=== PATIENT | male | born 1965 | race Caucasian/White ===

== ENCOUNTER 2021-01-11 17:27 | Emergency (ER) | payer MEDICAID, SELFPAY ==
[2021-01-11 17:36] VITALS: BP 146/95; PULSE 93; RESP 16; TEMP 36.9; O2SAT 96; BMI 26.1
[2021-01-11 17:41] VITALS: BP 146/95; PULSE 86; RESP 16; O2SAT 94
[2021-01-11 17:47] VITALS: BP 146/95; PULSE 84; RESP 16; O2SAT 98
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
[2021-01-11] MEDS: acetaminophen 325 mg Tablet 650 MG PO (19:02)
--- NOTE | 2021-01-12 10:59 | DCPLANNER ---
schedule planning manager had message to schedule a follow up appointment for patient with ortho. schedule planning manager called the ortho clinic, spoke with Maryjo, gave clinic patients information. schedule planning manager was told that patients information would be printed and reviewed. Clinic will call patient with appointment information.
--- NOTE | 2021-01-13 07:48 | DCPLANNER ---
Patient has a follow up appointment scheduled for Friday, January 15, 2021 at 10:[address] Reese at ortho. Clinic will call patient with appointment information.
--- NOTE | 2021-01-21 14:08 | DCPLANNER ---
Patient had a follow up appointment scheduled for 01.15.[address] Reese at [facility] - patient did attend appointment.
== END 2021-01-11 19:21 | disposition home or self-care (01) ==
LOC: ER 17:40
PROVIDERS: Emergency Provider Family Medicine
DX: S82.401A Unspecified fracture of shaft of right fibula, initial encounter for closed fracture (principal); X50.1XXA Overexertion from prolonged static or awkward postures, initial encounter; F17.210 Nicotine dependence, cigarettes, uncomplicated
CPT/HCPCS: 73600; 99283

== ENCOUNTER → 2021-01-15 10:21 | Outpatient (BNVA) | payer MEDICARE, MEDICAID, SELFPAY | PROVIDERS: Referring Provider Family Medicine; Visit Provider Orthopaedic Surgery | DX: S82.409A Unspecified fracture of shaft of unspecified fibula, initial encounter for closed fracture (principal); X58.XXXA Exposure to other specified factors, initial encounter | CPT/HCPCS: 73610 ==

== ENCOUNTER → 2021-01-28 10:15 | Outpatient (BNVA) | payer MEDICARE, MEDICAID, SELFPAY | PROVIDERS: Visit Provider Orthopaedic Surgery | DX: S82.409A Unspecified fracture of shaft of unspecified fibula, initial encounter for closed fracture (principal); X58.XXXA Exposure to other specified factors, initial encounter | CPT/HCPCS: 73610 ==

== ENCOUNTER → 2021-02-25 09:22 | Outpatient (BNVA) | payer MEDICARE, MEDICAID, SELFPAY | PROVIDERS: Visit Provider Orthopaedic Surgery | DX: S82.899A Other fracture of unspecified lower leg, initial encounter for closed fracture (principal); S82.831A Other fracture of upper and lower end of right fibula, initial encounter for closed fracture | CPT/HCPCS: 73610 ==

== ENCOUNTER → 2021-04-15 08:43 | Outpatient (BNVA) | payer MEDICARE, MEDICAID, SELFPAY | PROVIDERS: Visit Provider Orthopaedic Surgery | DX: S82.409A Unspecified fracture of shaft of unspecified fibula, initial encounter for closed fracture (principal); S82.899A Other fracture of unspecified lower leg, initial encounter for closed fracture; X58.XXXA Exposure to other specified factors, initial encounter | CPT/HCPCS: 73610 ==

== ENCOUNTER 2021-05-05 03:30 | Emergency (ER) | payer MEDICARE, MEDICAID, SELFPAY ==
[2021-05-05 03:31] VITALS: BP 133/97; PULSE 88; RESP 18; TEMP 36.6; O2SAT 95; BMI 27.3
--- NOTE | 2021-05-05 03:32 | XRR_ITS ---
PROCEDURE INFORMATION: Exam: XR Right Ankle Exam date and time: 05/05/2021 3:32 AM Age: 56 years old Clinical indication: Injury or trauma; Fall; Blunt trauma; Ankle; Right TECHNIQUE: Imaging protocol: XR Right ankle. Views: 3 or more views. COMPARISON: No relevant prior studies available. FINDINGS: Bones/joints: Subacute transverse fracture of the distal fibula at the level of the ankle joint, with evidence of healing, manifested by bony bridging and periosteal reaction. Joint spaces are well maintained. No dislocation. Swelling of the adjacent soft tissues is present. Soft tissues: See Bones/joints finding. XR/XR ankle RT min 3V* [id number] IMPRESSION: Healing fracture of the right distal fibula.
--- NOTE | 2021-05-05 03:32 | XRR_ITS ---
PROCEDURE INFORMATION: Exam: XR Right Foot Exam date and time: 05/05/2021 3:32 AM Age: 56 years old Clinical indication: Injury or trauma; Fall; Blunt trauma; Foot; Right TECHNIQUE: Imaging protocol: XR Right foot. Views: 3 or more views. COMPARISON: CR XR ankle RT min 3V* [id number] 04/15/2021 8:50 AM FINDINGS: Bones/joints: No acute fracture or dislocation. Healing fracture of the distal fibula. Joint spaces are well maintained. A small bone island is noted in the great toe proximal phalanx. Soft tissues: There is mild swelling of the soft tissues around the ankle. XR/XR foot RT min 3V* [id number] IMPRESSION: 1. No acute injury. 2. Healing fracture of the distal fibula.
--- NOTE | 2021-05-05 03:38 | ED_ITS ---
HPI - Fall General: Chief Complaint: Fall Stated Complaint: FALL Time Seen by Provider: 05/05/21 03:32 Source: patient and EMS Mode of arrival: EMS Limitations: no limitations History of Present Illness: HPI Narrative: 56-year-old male who came by EMS after a fall 2 hours ago. He states that he twisted his right ankle and has right lateral ankle pain since then. He states he had difficulty walking. He states that he actually broke an ankle 3 months ago and just got out of the walking boot. He denies any other injuries. Denies any pain. Denies hitting his head. complaint: fall Associated symptoms-after fall: Denies abdominal pain, chest pain, headache(s) or neck pain Review of Systems Const: Denies: fever(s), chills, body aches or change in appetite Eyes: Denies: blurry vision or eye discomfort ENMT: Denies: throat pain or dental pain Card: Denies: chest pain Resp: Denies: dyspnea GI: Denies: abdominal pain, nausea, vomiting or diarrhea : Denies: dysuria Musc: Reports: extremity pain; Denies: neck pain or back pain Skin/Breast: Denies: rash Neuro: Denies: headache(s) Psych: Denies: depression Fabio/Lymph: Denies: easy bruising All/Imm: Denies: urticaria PFSH ED PFSH: Family History Mother Hyperlipidemia Social History Smoking and tobacco status: current every day smoker cigarettes Alcohol intake: never Lives independently: Yes Marital status: / service: Yes status: Retired Current occupational status: retired History of recent travel: No Current gender identity: Male Physical Exam Const: COMMON NORMALS: no acute distress, patient oriented x3 and healthy appearing HENMT: COMMON NORMALS: normocephalic and atraumatic HEAD & SCALP: normocephalic and atraumatic Eye: COMMON NORMALS: Equal, round and reactive pupils present and EOMs intact bilaterally PUPIL: Yes Equal, round and reactive pupils present Neck/C-Spine: COMMON NORMALS: full ROM and supple Chest: COMMONS NORMALS: normal inspection of the chest and normal palpation of entire chest wall Resp: COMMON NORMALS: normal respiratory effort, No retractions, No use of accessory muscles and clear to auscultation bilaterally AUSCULTATION: clear to auscultation bilaterally Cardio: COMMON NORMALS: regular rate, regular rhythm and No murmurs present (Cardio) RATE: regular rate RHYTHM: regular rhythm GI: COMMON NORMALS: Normal to inspection, nondistended, normoactive bowel sounds present, Soft to palpation, non-tender and no masses PALPATION: Yes Soft to palpation Extremity: COMMON NORMALS: normal to inspection and full ROM NARRATIVE EXTREMITY EXAM: Tenderness over right lateral ankle with no obvious deformity Neuro: COMMON NORMALS: patient oriented x3, moves all extremities and no focal motor deficits Psych: COMMON NORMALS: mental status grossly normal, Normal thought process present and cooperative THOUGHT PROCESS: Normal thought process present Skin: COMMON NORMALS: no rashes or lesions noted and no wounds GENERAL SKIN EXAM: no rashes or lesions noted Course Vital Signs: Vital signs: Vital Signs Temperature 97.9 F 05/05/21 03:31 Pulse Rate 88 05/05/21 03:31 Respiratory Rate 18 05/05/21 03:31 Blood Pressure 133/97 05/05/21 03:31 Pulse Oximetry 95 05/05/21 03:31 MDM - Fall MDM Narrative: Medical decision making narrative: Patient presents after a fall and has a distal fibula fracture. He is to be nonweightbearing and we will place him in a splint and have him use crutches. He is to follow-up with orthopedics and return if worsening. Imaging Data^: xr r ankle: Attestation: I personally reviewed and interpreted this imaging study as follows: My impression: distal fibula fx Discharge Plan Discharge Patient Disposition: Home Clinical Impression: Ankle fracture Qualifiers: Encounter type: initial encounter Fracture type: closed Laterality: right Qualified Code(s): S82.891A - Other fracture of right lower leg, initial encounter for closed fracture Condition: Stable Prescriptions: New hydrocodone-acetaminophen 5-325 mg tablet 1 tab PO Q6H PRN (Reason: pain) Qty: 14 RF: 0 No Action hydrocodone-acetaminophen 5-325 mg tablet 1 tab PO Q6H PRN (Reason: pain) 7 Days Qty: 30 RF: 0 methocarbamol [Robaxin-750] 750 mg tablet 750 mg PO Q8H RF: 0 trazodone 150 mg tablet 300 mg PO BEDTIME@2200 RF: 0 buspirone 10 mg tablet 10 mg PO BID@0600,1800 RF: 0 mometasone [Nasonex] 50 mcg/actuation spray,non-aerosol 2 spray INTRANASAL DAILY@0600 RF: 0 metoprolol succinate 25 mg tablet extended release 24 hr 12.5 mg PO DAILY@0600 RF: 0 nicotine 14 mg/24 hr patch 24 hour 1 patch TRANSDERMA DAILY RF: 0 fluticasone propion-salmeterol [Advair Diskus] 250-50 mcg/dose blister with device 1 inh INHALATION BID@0800,1800 RF: 0 Spiriva Respimat 2.5 mcg/actuation mist 2 puff INHALATION DAILY@0600 RF: 0 pantoprazole 40 mg tablet,delayed release (DR/EC) 40 mg PO DAILY@0600 RF: 0 fluticasone propionate 50 mcg/actuation spray,suspension 2 spray INTRANASAL DAILY@0600 RF: 0 gabapentin 400 mg capsule 400 mg PO TID@06,12,18 RF: 0 Discharge Orders: Discharge ED (Routine); Ordered 05/05/21 Ordered By: Ton iL Referrals: Dena Alberts MD [Physician] - 1-3 days Discharge Diet: Advance as tolerated Discharge Activity: Resume usual activity Patient Instructions: Ankle Fracture (ED), Opioid Safety Coding Level of Care Code ED Digital Marketing Analyst for Alainag Fwd Exam Comprehensive
[2021-05-05] MEDS: HYDROcodone-acetaminophen 5-325 mg Tablet 1 TAB PO (03:41)
== END 2021-05-05 04:17 | disposition home or self-care (01) ==
PROVIDERS: Emergency Provider Emergency Medicine
DX: S82.831A Other fracture of upper and lower end of right fibula, initial encounter for closed fracture (principal); F17.210 Nicotine dependence, cigarettes, uncomplicated; X50.1XXA Overexertion from prolonged static or awkward postures, initial encounter
CPT/HCPCS: 29515; 73610; 73630; 99283; E0114

== ENCOUNTER → 2021-05-13 08:15 | Outpatient (BNVA) | payer MEDICARE, MEDICAID, SELFPAY | PROVIDERS: PCP Family Medicine; Visit Provider Podiatrist Foot & Ankle Surgery | DX: S82.891A Other fracture of right lower leg, initial encounter for closed fracture (principal); X58.XXXA Exposure to other specified factors, initial encounter | CPT/HCPCS: 73610 ==

== ENCOUNTER → 2021-05-25 08:01 | Outpatient (BNVA) | payer MEDICARE, MEDICAID, SELFPAY | PROVIDERS: PCP Family Medicine; Visit Provider Podiatrist Foot & Ankle Surgery | DX: S82.891A Other fracture of right lower leg, initial encounter for closed fracture (principal); S82.831A Other fracture of upper and lower end of right fibula, initial encounter for closed fracture; X58.XXXA Exposure to other specified factors, initial encounter; Z46.89 Encounter for fitting and adjustment of other specified devices; M25.371 Other instability, right ankle; S82.891D Other fracture of right lower leg, subsequent encounter for closed fracture with routine healing; S82.831D Other fracture of upper and lower end of right fibula, subsequent encounter for closed fracture with routine healing; X58.XXXD Exposure to other specified factors, subsequent encounter | CPT/HCPCS: 73610; 97760; L1902 ==

== ENCOUNTER 2021-05-25 09:04 | Outpatient (CLI) | payer MEDICARE, MEDICAID, SELFPAY | END 2021-05-25 09:05 | disposition home or self-care (01) | LOC: SPT 09:05 | PROVIDERS: Family Provider Podiatrist Foot & Ankle Surgery; PCP Family Medicine; Visit Provider Podiatrist Foot & Ankle Surgery | DX: Z46.89 Encounter for fitting and adjustment of other specified devices (principal); M25.371 Other instability, right ankle; S82.891D Other fracture of right lower leg, subsequent encounter for closed fracture with routine healing; S82.831D Other fracture of upper and lower end of right fibula, subsequent encounter for closed fracture with routine healing; X58.XXXD Exposure to other specified factors, subsequent encounter | CPT/HCPCS: 97760; L1902 ==

== ENCOUNTER 2021-06-02 10:57 | Outpatient (RCR) | payer MEDICARE, MEDICAID, SELFPAY | END 2021-06-05 23:59 | disposition home or self-care (01) | LOC: SPT 10:57 | PROVIDERS: Absent Provider Podiatrist Foot & Ankle Surgery; Family Provider Podiatrist Foot & Ankle Surgery; PCP Family Medicine; Referring Provider Podiatrist Foot & Ankle Surgery; Visit Provider Podiatrist Foot & Ankle Surgery | DX: M25.373 Other instability, unspecified ankle (principal); S82.891D Other fracture of right lower leg, subsequent encounter for closed fracture with routine healing; S82.831D Other fracture of upper and lower end of right fibula, subsequent encounter for closed fracture with routine healing; X58.XXXD Exposure to other specified factors, subsequent encounter | CPT/HCPCS: 97110; 97161 ==

== ENCOUNTER → 2021-06-21 13:47 | Outpatient (BNVA) | payer MEDICARE, MEDICAID, SELFPAY | PROVIDERS: Family Provider Podiatrist Foot & Ankle Surgery; PCP Family Medicine; Visit Provider Podiatrist Foot & Ankle Surgery | DX: S82.831D Other fracture of upper and lower end of right fibula, subsequent encounter for closed fracture with routine healing (principal); X58.XXXD Exposure to other specified factors, subsequent encounter | CPT/HCPCS: 73610 ==

== ENCOUNTER 2022-05-07 15:05 | Observation (INO) | payer MEDICARE, MEDICAID, SELFPAY ==
[2022-05-07] VITALS (9 sets, daily range): BP systolic 115–160; BP diastolic 64–95; PULSE 53–83; RESP 17–21; TEMP 36.3; O2SAT 94–100; BMI 27.3
--- NOTE | 2022-05-07 15:15 | ECG_ITS ---
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 Measurements Intervals [place] Rate: 78 P: 62 DC: 135 QRS: -3 QRSD: 101 T: 58 QT: 408 QTc: 468 Interpretive Statements SINUS RHYTHM SEPTAL MYOCARDIAL INFARCTION , PROBABLY OLD [40+ ms Q WAVE IN V1/V2] Compared to ECG 08/12/2016 00:47:02 Myocardial infarct finding now present Poor R-wave progression no longer present Electronically Signed On 05-08-2022 8:36:40 CDT by Narciso Mosley M.D. [id number]
--- NOTE | 2022-05-07 15:15 | XRR_ITS ---
PROCEDURE INFORMATION: Exam: XR Chest Exam date and time: 05/07/2022 3:22 PM Age: 57 years old Clinical indication: Angina; Additional info: Cp TECHNIQUE: Imaging protocol: Radiologic exam of the chest. Views: 1 view. COMPARISON: CT chest w con* [id number] 11/22/2018 8:39 AM FINDINGS: Lungs: Faint opacity in the inferolateral left upper lobe may be secondary to confluence of shadows or ground-glass lung opacities. The lungs are otherwise clear. Pleural spaces: Unremarkable. No pleural effusion. No pneumothorax. Heart/Mediastinum: Unremarkable. No cardiomegaly. Bones/joints: Unremarkable. XR/XR chest 1V portable [id number] IMPRESSION: Possible left upper lobe ground-glass opacity versus artifact.
--- NOTE | 2022-05-07 15:16 | ED_ITS ---
HPI - Chest Pain General: Chief Complaint: Chest Pain Stated Complaint: CHEST PAIN Time Seen by Provider: 05/07/22 15:08 History of Present Illness: 57-year-old presents with chest pain. States this started approximately an hour ago. Describes it as achy and radiating down the left arm. States that he had an unremarkable stress test 2 years ago but does not have any stents. Denies lower extremity pain or swelling. States pain resolved with nitro by EMS. He also received full-strength aspirin. Denies any nausea vomiting fever cough or chills. States pain is not exertional or pleuritic. Review of Systems Narrative: - CONSTITUTIONAL: Denies weight loss, fever and chills. - HEENT: Denies changes in vision and hearing. - RESPIRATORY: Denies SOB and cough. - CV: As above - GI: Denies abdominal pain, nausea, vomiting and diarrhea. - : Denies dysuria and urinary frequency. - MSK: Denies myalgia and joint pain. - SKIN: Denies rash and pruritus. - NEUROLOGICAL: Denies headache, weakness, numbness and syncope. - PSYCHIATRIC: Denies suicidal ideation PFSH ED PFSH: Family History Mother Hyperlipidemia Social History Smoking and tobacco status: never smoked Alcohol intake: never Lives independently: Yes Marital status: / service: Yes status: Retired Current occupational status: retired History of recent travel: No Current gender identity: Male Physical Exam Narrative: EXAM NARRATIVE: - GENERAL: Alert and oriented x 3. No acute distress. Well-nourished. - EYES: EOMI. Anicteric. - HENT: Atraumatic, no C-spine tenderness. Moist mucous membranes. No scleral icterus. No cervical lymphadenopathy. - LUNGS: Clear to auscultation bilaterally. No accessory muscle use. Equal lung sounds bilaterally. No respiratory distress. - CARDIOVASCULAR: Regular rate and rhythm. No murmur. No JVD. - ABDOMEN: Soft, non-tender and non-distended. Negative CVA tenderness bilaterally, no rebound or guarding, negative Williamson sign. No palpable masses. - EXTREMITIES: No edema. Non-tender. - SKIN: No rashes or lesions. Warm. - NEUROLOGIC: No meningismus or focal neurological deficits. CN II-XII grossly intact. - PSYCHIATRIC: Cooperative. Appropriate mood and affect. Course Vital Signs: Vital signs: Vital Signs Pulse Rate 72 05/07/22 16:45 Respiratory Rate 18 05/07/22 16:45 Blood Pressure 116/64 05/07/22 16:45 Pulse Oximetry 95 05/07/22 16:45 MDM - Chest Pain Medical Decision Making 57-year-old presents with chest pain. States it radiates down the left arm. This resolved after nitro by EMS. He already received full-strength aspirin. Initial EKG and troponin do not reveal any sign of acute ischemia or other acute abnormality. D-dimer is elevated. CTA of the chest is currently pending. Remainder of lab work and imaging reviewed. Discussed with hospitalist and they agreed patient would benefit from admission. Patient admitted in stable condition. Further evaluation management per hospitalist team. Lab Data : 05/07/22 15:15 05/07/22 15:15 Radiology Impressions Chest X-Ray 05/07/22 15:15 IMPRESSION: Possible left upper lobe ground-glass opacity versus artifact. Laboratory Results WBC 8.3 10^3/uL (4.0-10.0) 05/07/22 15:15 RBC 4.46 10^6/uL (4.1-5.3) 05/07/22 15:15 Hgb 14.6 g/dL (11.7-16.6) 05/07/22 15:15 Hct 42.4 % (42.0-52.0) 05/07/22 15:15 MCV 95.1 fl (80-94) H 05/07/22 15:15 MCH 32.7 pg (28.0-34.0) 05/07/22 15:15 MCHC 34.4 g/dL (30.0-36.0) 05/07/22 15:15 RDW 12.6 % (12.1-15.1) 05/07/22 15:15 Plt Count 210 10^3/cmm (130-400) 05/07/22 15:15 MPV 9.5 fL (7.4-10.4) 05/07/22 15:15 Neut % (Auto) 61.3 % 05/07/22 15:15 Lymph % (Auto) 30.7 % 05/07/22 15:15 Edmunds % (Auto) 5.7 % 05/07/22 15:15 Eos % (Auto) 0.8 % 05/07/22 15:15 Baso % (Auto) 1.0 % 05/07/22 15:15 Neut # (Auto) 5.08 10^3/uL (1.8-7.7) 05/07/22 15:15 Lymph # (Auto) 2.5 10^3/uL (0.8-4.8) 05/07/22 15:15 Edmunds # (Auto) 0.5 10^3/uL (0.2-0.9) 05/07/22 15:15 Eos # (Auto) 0.1 10^3/uL (0.0-0.8) 05/07/22 15:15 Baso # (Auto) 0.1 10^3/uL (0.0-0.1) 05/07/22 15:15 Nucleated RBC % (auto) 0 % 05/07/22 15:15 Nucleated RBCs # 0.0 /100WBC 05/07/22 15:15 D-Dimer 0.94 ug/mIFEU (0-0.59) H 05/07/22 15:15 Sodium 141 mmol/L (136-145) 05/07/22 15:15 Potassium 3.5 mmol/L (3.5-5.1) 05/07/22 15:15 Chloride 108 mmol/L (98-107) H 05/07/22 15:15 Carbon Dioxide 18 mmol/L (22-29) L 05/07/22 15:15 Anion Gap 18.5 (5-19) 05/07/22 15:15 BUN 10 mg/dL (6-20) 05/07/22 15:15 Creatinine 0.6 mg/dL (0.7-1.2) L 05/07/22 15:15 GFR Calculation 139.4 mL/min (90-130) H 05/07/22 15:15 Glucose 74 mg/dL (65-115) 05/07/22 15:15 Calculated Osmolality 290 mOsm/kg (285-295) 05/07/22 15:15 Calcium 8.1 mg/dL (8.5-10.5) L 05/07/22 15:15 Total Bilirubin 0.4 mg/dL (0.15-1.2) 05/07/22 15:15 AST 31 U/L (0-40) 05/07/22 15:15 ALT 15 U/L (0-41) 05/07/22 15:15 Alkaline Phosphatase 78 IU/L (40-130) 05/07/22 15:15 Troponin T Baseline 8 ng/L (0-15) 05/07/22 15:15 Total Protein 6.6 g/dL (6.6-8.7) 05/07/22 15:15 Albumin 3.9 g/dL (3.5-5.2) 05/07/22 15:15 Globulin 2.7 g/dL (1.3-4.6) 05/07/22 15:15 Lipase 33 U/L (13-60) 05/07/22 15:15 EKG Data EKG 1: Other EKG comments: Sinus rhythm, rate of 78, no sign of acute ischemia or other acute abnormality. Discharge Plan Discharge Condition: Stable Prescriptions: No Action (DME) ASO to the Right See Rx Instructions .ROUTE .MEDSUPPLY Qty: 1 0RF Rx Instructions: As directed metoprolol succinate 25 mg tablet extended release 24 hr 25 mg PO DAILY@0600 0RF fluticasone propion-salmeterol [Advair Diskus] 250-50 mcg/dose blister with device 1 inh INHALATION BID@0800,1800 0RF Spiriva Respimat 2.5 mcg/actuation mist 2 puff INHALATION DAILY@0600 0RF pantoprazole 40 mg tablet,delayed release (DR/EC) 40 mg PO DAILY@0600 0RF fluticasone propionate 50 mcg/actuation spray,suspension 2 spray INTRANASAL DAILY@0600 0RF gabapentin 400 mg capsule 400 mg PO TID@06,12,18 0RF lisinopril 10 mg tablet 10 mg PO DAILY 0RF Symbicort 160-4.5 mcg/actuation HFA aerosol inhaler 2 puff INHALATION BID 0RF Daliresp 500 mcg Tablet 500 mcg PO DAILY 0RF Referrals: Sheldon Banerjee DO [Primary Care Provider] - Coding Level of Care Code ED 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
[2022-05-07 15:43] LABS: Basophils # 0.1 10^3/uL (0.0-0.1); Eosinophils # 0.1 10^3/uL (0.0-0.8); Eosinophils % 0.8 %; Hematocrit 42.4 % (42.0-52.0); Hemoglobin 14.6 g/dL (11.7-16.6); Lymphocytes # 2.5 10^3/uL (0.8-4.8); Lymphocytes % 30.7 %; Mean Corpuscular HGB Conc 34.4 g/dL (30.0-36.0); Mean Corpuscular Hemoglobin 32.7 pg (28.0-34.0); Mean Corpuscular Volume 95.1 fl (80-94); Mean Platelet Volume 9.5 fL (7.4-10.4); Monocytes # 0.5 10^3/uL (0.2-0.9); Monocytes % 5.7 %; Neutrophils # 5.08 10^3/uL (1.8-7.7); Neutrophils % 61.3 %; Nucleated Red Blood Cells % 0 %; Platelet Count 210 10^3/cmm (130-400); Red Blood Count 4.46 10^6/uL (4.1-5.3); Red Cell Distribution Width 12.6 % (12.1-15.1); White Blood Count 8.3 10^3/uL (4.0-10.0)
[2022-05-07 15:49] LABS: D Dimer 0.94 ug/mIFEU (0-0.59)
[2022-05-07 16:01] LABS: Alanine Aminotransferase 15 U/L (0-41); Albumin Level 3.9 g/dL (3.5-5.2); Alkaline Phosphatase 78 IU/L (40-130); Anion Gap 18.5 (5-19); Aspartate Amino Transferase 31 U/L (0-40); Blood Urea Nitrogen 10 mg/dL (6-20); Calcium 8.1 mg/dL (8.5-10.5); Carbon Dioxide 18 mmol/L (22-29); Chloride 108 mmol/L (98-107); Globulin 2.7 g/dL (1.3-4.6); Glomerular Filtration Rate 139.4 mL/min (90-130); Glucose 74 mg/dL (65-115); Lipase 33 U/L (13-60); Osmolality Calculated 290 mOsm/kg (285-295); Potassium 3.5 mmol/L (3.5-5.1); Sodium 141 mmol/L (136-145); Total Bilirubin 0.4 mg/dL (0.15-1.2); Total Protein 6.6 g/dL (6.6-8.7)
[2022-05-07 16:03] LABS: Troponin(5th) Baseline 8 ng/L (0-15)
--- NOTE | 2022-05-07 16:08 | CTR_ITS ---
PROCEDURE INFORMATION: Exam: CTA Chest With Contrast Exam date and time: 05/07/2022 5:58 PM Age: 57 years old Clinical indication: Other: Chest pain radiates to left side of neck; Additional info: Pe TECHNIQUE: Imaging protocol: Computed tomographic angiography of the chest with contrast. 3D rendering (Not supervised by radiologist): MIP and/or 3D reconstructed images were created by the technologist. Radiation optimization: All CT scans at this facility use at least one of these dose optimization techniques: automated exposure control; mA and/or kV adjustment per patient size (includes targeted exams where dose is matched to clinical indication); or iterative reconstruction. Contrast material: OMNI 350; Contrast volume: 84 ml; Contrast route: INTRAVENOUS (IV); COMPARISON: CT chest w con* [id number] 11/22/2018 8:39 AM RADIATION DOSE METRICS: Total DLP (mGy-cm): 579.19 FINDINGS: Pulmonary arteries: The pulmonary arteries are adequately opacified for evaluation to the subsegmental level. There is no filling defect to suggest embolism. Aorta: The ascending aorta is ectatic measuring up to 4 cm diameter. There is mild aortic atherosclerotic disease. Lungs: There is moderate upper lung predominant centrilobular emphysema. There is no consolidation. Pleural spaces: There is no pleural effusion or pneumothorax. Heart: Heart size is normal. There is no pericardial effusion. Lymph nodes: There is no mediastinal or hilar lymphadenopathy. Intraperitoneal space: Visible structures in the upper abdomen are unremarkable. Bones/joints: Bones are unremarkable. Soft tissues: The extrathoracic soft tissues are unremarkable. CT/CT angio chest PE protcl [id number] IMPRESSION: 1. No pulmonary embolism. 2. Moderate centrilobular emphysema. no consolidation. 3. Incidental findings above.
--- NOTE | 2022-05-07 17:15 | ECG_ITS ---
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 Measurements Intervals [place] Rate: 51 P: 19 AR: 120 QRS: 1 QRSD: 99 T: 30 QT: 470 QTc: 433 Interpretive Statements SINUS BRADYCARDIA SEPTAL MYOCARDIAL INFARCTION , PROBABLY OLD [40+ ms Q WAVE IN V1/V2] Compared to ECG 05/07/2022 15:19:46 Sinus rhythm no longer present Myocardial infarct finding still present Electronically Signed On 05-08-2022 8:38:37 CDT by Narciso Mosley M.D. [id number]
[2022-05-07 17:47] LABS: Troponin 5 2HR 8.37 ng/L (0-15)
[2022-05-07 17:51] LABS: Troponin 5 2HR Delta 0.37 ABS# (0-10)
[2022-05-07] MEDS: iohexol 350 mg/mL 100 mL Btl IV (17:57)
--- NOTE | 2022-05-07 17:58 | USCV_ITS ---
Lucian Banuelos Age: 57 Gender: M : 1965 Exam Date: 05/07/2022 23:36 Ordering Phys: London Sepulveda MD Technologist: Derek Huffman Exam Location: [facility] [place] Indication: chest pain tightness / shortness of breath BP: 138 / 85 HR: 53 Rhythm: Sinus Technical Quality: Adequate MEASUREMENTS (Male / Female) Normal Values 2D ECHO LV Diastolic Diameter PLAX 4.5 cm 4.2 - 5.9 / 3.9 - 5.3 cm LV Systolic Diameter PLAX 2.8 cm IVS Diastolic Thickness 1.1 cm 0.6 - 1.0 / 0.6 - 0.9 cm IVS Systolic Thickness 1.7 cm LVPW Diastolic Thickness 1.1 cm 0.6 - 1.0 / 0.6 - 0.9 cm LVPW Systolic Thickness 1.9 cm LVOT Diameter 2.0 cm LV Ejection Fraction 2D Teich 63.5 % LV Ejection Fraction MOD 2C 62.1 % LV Ejection Fraction 2C AL 62.4 % LA Diameter 3.4 cm LA Width 3.6 cm LA Height 3.3 cm RA Width 3.2 cm RA Height 3.8 cm Aorta at Sinotubular Diameter 1.7 cm IVC Diameter 1.0 cm M-MODE Aortic Annulus Diameter 2.4 cm LA Ao Ratio MM 1.5 MV E Point Septal Separation 1.2 cm DOPPLER AV Peak Velocity 99.3 cm/s LVOT Peak Velocity 53.0 cm/s AV Area Cont Eq vti 2.1 cm squared AV Area Cont Eq pk 1.6 cm squared MV Area PHT 5.0 cm squared Mitral E to A Ratio 1.8 MV E' Velocity 49.5 cm/s Mitral E to MV E' Ratio 5.5 Mitral E to LV E' Lateral Ratio 4.3 Mitral E to LV E' Septal Ratio 7.9 Right Atrial Pressure 3.0 mmHg PV Peak Velocity 85.0 cm/s FINDINGS Left Ventricle Normal left ventricular size, systolic function and wall thickness, with no regional wall motion abnormalities. Normal left ventricular wall thickness. Normal diastolic filling pattern. Left ventricular ejection fraction is estimated at 65 %. Right Ventricle The right ventricle is normal in size and function. Right Atrium The right atrium is normal in size. Left Atrium The left atrium is normal in size. Mitral Valve Structurally normal mitral valve without significant stenosis or prolapse. There is no mitral regurgitation. Aortic Valve Structurally normal aortic valve without significant sclerosis or stenosis. There is no aortic regurgitation. Tricuspid Valve Structurally normal tricuspid valve without significant stenosis or regurgitation. Pulmonary artery systolic pressure is normal. Pulmonic Valve Structurally normal pulmonic valve without significant stenosis. There is no pulmonic regurgitation. Pericardium Normal pericardium without effusion. Aorta Normal ascending aorta dimension. IVC The inferior vena cava pulmonary and hepatic veins appear normal. CONCLUSIONS Normal transthoracic echocardiogram. Dr. Narciso Mosley MD (Electronically Signed) Final Date: 08 May 2022 08:35 S
--- NOTE | 2022-05-07 18:11 | PM.HP ---
Providers/Chief Complaint Primary Care Provider: Sheldon Banerjee DO Chief Complaint: CHEST PAIN History of Present Illness Lucian Banuelos is a 57 year old male with a past medical history of COPD, current smoker, hypertension, history of CVA, CAD, who presents to [facility] for chest pain. Patient tells me that today he was walking outside, when he suddenly had onset of left-sided chest pain rating to the left neck, with shortness of breath, rating to the left arm, with diaphoresis, no nausea, vomiting. He tells me that he has been having increased shortness of breath with exertion, and episodes of chest pain but this was more severe. He tells me he had a history of CAD many years ago but no stents were placed. Does have a history of COPD, is a smoker, has been more short of breath recently. Review of Systems Const: Denies: fever(s), chills, fatigue or malaise ENMT: Denies: nasal congestion GI: Denies: abdominal pain, nausea or vomiting : Denies: dysuria Neuro: Denies: headache(s), dizziness or vertigo Medications/Allergies Home Medications Medication Instructions Recorded Confirmed Last Taken Type fluticasone 250 mcg-salmeterol 50 1 inh INHALATION BID@0800,1800 11/20/19 05/07/22 05/07/22 History mcg/dose blistr powdr for inhalation (Advair Diskus) metoprolol succinate 25 mg 25 mg PO DAILY@0600 tab 11/20/19 05/07/22 05/07/22 History tablet,extended release 24 hr tiotropium bromide 2.5 2 puff INHALATION DAILY@0600 11/20/19 05/07/22 05/07/22 History mcg/actuation mist for inhalation (Spiriva Respimat) fluticasone propionate 50 2 spray INTRANASAL DAILY@0600 01/11/21 05/07/22 05/07/22 History mcg/actuation nasal spray,suspension gabapentin 400 mg capsule 400 mg PO TID@06,12,18 01/11/21 05/07/22 05/07/22 History pantoprazole 40 mg tablet,delayed 40 mg PO DAILY@0600 01/11/21 05/07/22 05/07/22 History release ASO to the Right #1 ea 05/25/21 05/07/22 Unknown Rx budesonide-formoterol HFA 160 2 puff INHALATION BID 05/07/22 05/07/22 05/07/22 History mcg-4.5 mcg/actuation aerosol inhaler (Symbicort) lisinopril 10 mg tablet 10 mg PO DAILY 05/07/22 05/07/22 05/07/22 History roflumilast 500 mcg tablet 500 mcg PO DAILY 05/07/22 05/07/22 05/07/22 History (Ramíreziresalex) Allergies Allergy/AdvReac Type Severity Reaction Status Date / Time No Known Allergies Allergy Verified 05/07/22 15:49 PFSH Acute PFSH: Medical History (Updated 05/07/22 @ 18:13 by London Sepulveda MD) COPD (chronic obstructive pulmonary disease) Depression Emphysema, unspecified Essential (primary) hypertension GERD (gastroesophageal reflux disease) Hypertension Tobacco abuse Family History Mother Hyperlipidemia Social History Smoking and tobacco status: never smoked Alcohol intake: never Lives independently: Yes Marital status: / service: Yes status: Retired Current occupational status: retired History of recent travel: No Current gender identity: Male Vitals/I&O/Wt Last Vital Signs Pulse 72 05/07/22 16:45 Resp 18 05/07/22 16:45 BP 116/64 05/07/22 16:45 Pulse Ox 95 05/07/22 16:45 Weight last 48 hrs Weight 81.647 kg Physical Exam Const: COMMON NORMALS: no acute distress and patient oriented x3 HENMT: COMMON NORMALS: normocephalic HEAD & SCALP: normocephalic Neck/C-Spine: COMMON NORMALS: no JVD Resp: COMMON NORMALS: normal respiratory effort, No retractions, No use of accessory muscles and clear to auscultation bilaterally AUSCULTATION: clear to auscultation bilaterally Cardio: COMMON NORMALS: no JVD, regular rate, regular rhythm, S1 normal heart sound present and S2 normal heart sound present RATE: regular rate RHYTHM: regular rhythm HEART SOUNDS: S1 normal heart sound present and S2 normal heart sound present GI: COMMON NORMALS: Normal to inspection, nondistended, normoactive bowel sounds present, Soft to palpation, non-tender, No hepatosplenomegaly present, no masses and no bruits PALPATION: Yes Soft to palpation and Yes No hepatosplenomegaly present Extremity: COMMON NORMALS: capillary refill normal, no clubbing, cyanosis or edema, no calf tenderness and no pedal edema Neuro: COMMON NORMALS: patient oriented x3, CN's II-XII intact bilaterally, moves all extremities and no focal motor deficits Psych: COMMON NORMALS: mental status grossly normal Data : 05/07/22 15:15 05/07/22 15:15 A&P Assessment and plan (1) Chest pain: Status: Acute Plan Chest pain -Serial EKGs, serial troponins, telemetry monitoring -Cardiac echo -Aspirin, nitro, beta-lisa, statin -Does have complaints of shortness of breath with exertion, is a smoker, will treat for COPD exacerbation, prednisone, duo nebs, one-time dose of Solu-Medrol, COVID PCR pending -CT angiogram pending -Full code -Lovenox for DVT prophylaxis Attestations Medical Necessity Statement*: Patient requires hospitalization for chest pain, outpatient with observation Coding Level of Care Code Acute Card Decorator for [facility] Fwd Diagnoses Chest pain R07.9
[2022-05-07 18:48] LABS: Adenovirus Not Detected (NOT DETECT); Chlamydia Pneumoniae Not Detected (NOT DETECT); Coronavirus 229E,HKU1,NL63,OC4 Not Detected (NOT DETECT); Human Metapneumovirus Not Detected (NOT DETECT); Human Rhinovirus/Enterovirus Not Detected (NOT DETECT); Influenza A Not Detected (NOT DETECT); Influenza A H1 Not Detected (NOT DETECT); Influenza A H1-2009 Not Detected (NOT DETECT); Influenza A H3 Not Detected (NOT DETECT); Influenza B Not Detected (NOT DETECT); Mycoplasma Pneumoniae Not Detected (NOT DETECT); Parainfluenza Virus Type 1 Not Detected (NOT DETECT); Parainfluenza Virus Type 2 Not Detected (NOT DETECT); Parainfluenza Virus Type 3 Not Detected (NOT DETECT); Parainfluenza Virus Type 4 Not Detected (NOT DETECT); Respiratory Syncytial Virus A Not Detected (NOT DETECT); Respiratory Syncytial Virus B Not Detected (NOT DETECT); SARS-COV-2 Not Detected (NOT DETECT)
[2022-05-07 19:22] LABS: Chol HDL Ratio 2.23 mg/dL (1.0-5.00); Cholesterol 154 mg/dL (0-200); HDL Cholesterol 69 mg/dL (60-100); LDL Cholesterol Calculated 72 mg/dL (50-129); LDL HDL Ratio 1.04 RATIO (0.00-3.22); Triglycerides 66 mg/dL (0-150)
[2022-05-07] MEDS: nicotine 21 mg Patch 1 PATCH TRANSDERMA (19:43)
[2022-05-07] MEDS: enoxaparin 40 mg/0.4 mL Syringe SUBCUT (19:44)
--- NOTE | 2022-05-07 21:15 | ECG_ITS ---
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 Measurements Intervals [place] Rate: 57 P: 17 [place]: 131 QRS: -12 QRSD: 93 T: 44 QT: 423 QTc: 414 Interpretive Statements SINUS BRADYCARDIA SEPTAL MYOCARDIAL INFARCTION , PROBABLY OLD [40+ ms Q WAVE IN V1/V2] Compared to ECG 05/07/2022 18:33:47 No significant changes Electronically Signed On 05-08-2022 8:39:09 CDT by Narciso Mosley M.D. [email or web address]
--- NOTE | 2022-05-07 21:44 | PC.NURSE ---
EKG done at 2141 and shown to ER doctor
[2022-05-07 22:13] LABS: Troponin 5 6HR 8.92 ng/L (0-15)
[2022-05-07 22:22] LABS: Troponin 5 6HR Delta 0.92 ng/L (0-12)
[2022-05-07] MEDS: nitroglycerin 0.4 mg sublingual Tablet SUBLINGUAL ×2 (22:22→22:32)
[2022-05-07] MEDS: atorvastatin 40 mg Tablet PO (22:24)
[2022-05-07] MEDS: gabapentin 400 mg Capsule PO (22:24)
[2022-05-07 22:50] LABS: Estmated Average Glucose 97
[2022-05-07] MEDS: morphine 4 mg/mL SDV 1 mL 2 MG IVP (22:52)
--- NOTE | 2022-05-07 23:57 | PC.NURSE ---
marisol charge nurse informed dr zamudio via voalte that pt was having chest pain shortly after arriving to the floor. nitro given x2, with moderate relief, one time order for morphine placed and given. pt states chest pain relieved, some mild tightness still present. no obvious changes noted on ekg, vss
[2022-05-08] VITALS (7 sets, daily range): BP systolic 152–174; BP diastolic 74–91; PULSE 62–83; RESP 16–17; TEMP 36.2–37.2; O2SAT 95–99
[2022-05-08 05:27] LABS: Basophils # 0.1 10^3/uL (0.0-0.1); Eosinophils % 0.2 %; Hematocrit 47.2 % (42.0-52.0); Hemoglobin 16.7 g/dL (11.7-16.6); Lymphocytes # 0.6 10^3/uL (0.8-4.8); Lymphocytes % 12.7 %; Mean Corpuscular HGB Conc 35.4 g/dL (30.0-36.0); Mean Corpuscular Hemoglobin 32.8 pg (28.0-34.0); Mean Corpuscular Volume 92.7 fl (80-94); Monocytes # 0.1 10^3/uL (0.2-0.9); Monocytes % 1.4 %; Neutrophils # 4.19 10^3/uL (1.8-7.7); Neutrophils % 84.1 %; Nucleated Red Blood Cells % 0 %; Platelet Count 202 10^3/cmm (130-400); Red Blood Count 5.09 10^6/uL (4.1-5.3); Red Cell Distribution Width 12.4 % (12.1-15.1)
[2022-05-08 05:51] LABS: Alanine Aminotransferase 14 U/L (0-41); Alkaline Phosphatase 83 IU/L (40-130); Anion Gap 15.3 (5-19); Aspartate Amino Transferase 33 U/L (0-40); Blood Urea Nitrogen 9 mg/dL (6-20); Calcium 8.9 mg/dL (8.5-10.5); Carbon Dioxide 24 mmol/L (22-29); Chloride 104 mmol/L (98-107); Glomerular Filtration Rate 139.4 mL/min (90-130); Glucose 106 mg/dL (65-115); Osmolality Calculated 287 mOsm/kg (285-295); Phosphorus 2.3 mg/dL (2.5-4.5); Potassium 4.3 mmol/L (3.5-5.1); Sodium 139 mmol/L (136-145); Total Bilirubin 0.7 mg/dL (0.15-1.2)
[2022-05-08] MEDS: gabapentin 400 mg Capsule PO (08:32)
[2022-05-08] MEDS: predniSONE 20 mg Tablet 40 MG PO (08:32)
[2022-05-08] MEDS: lisinopril 10 mg Tablet PO (08:32)
[2022-05-08] MEDS: aspirin 81 mg EC Tablet PO (08:32)
[2022-05-08] MEDS: metoprolol succinate ER (24 HR) 25 mg Tablet PO (08:32)
[2022-05-08] MEDS: ipratropium-albuterol 3 mL Neb INHALATION (08:51)
--- NOTE | 2022-05-08 11:29 | PC.NURSE ---
patient's pharmacy isn't open today or tomorrow for the 09 of May, this nurse asked patient what pharmacy he wanted his meds sent to so that he can pick them up today. Pt refused to have medications sent anywhere but [facility] in [place], [place]. Patient educated on the importance of starting his medications EDER to prevent further ilness, chest pain, etc. Patient verbalized understanding. Medications were sent to pharmacy of choice.
--- NOTE | 2022-05-08 11:29 | PM.DCS ---
Discharge Providers Date of Admission: 05/07/22 17:46 Date of Discharge: May 08, 2022 Attending Provider at Admission: London Sepulveda MD Attending Provider at Discharge: London Sepulveda MD Primary Care Provider: Sheldon Banerjee DO Diagnoses at Discharge Discharge Diagnosis (1) Chest pain: Status: Acute Reason for Visit Reason for Visit: CHEST PAIN Hospital Course Hospital Course Lucian Banuelos is a 57 year old male with a past medical history of COPD, current smoker, hypertension, history of CVA, CAD, who presents to [facility] for chest pain.? Patient was admitted to [facility] for chest pain, no significant troponin leak, EKG no acute ST-T wave changes, he did have Q waves in the anterior leads, CT angiogram of the chest did not show any radiographic evidence of pulmonary embolism, his echocardiogram EF 65%, no significant wall motion abnormalities, he remained chest pain-free during his hospitalization Given his smoking history, I have advised him to follow-up with cardiology this week for consideration of stress testing. Patient was advised if you have recurrent chest pain to come back to emergency room. I have discharged him on aspirin, statin, beta-lisa, Aldactone, nitro as needed for chest pain. Physical Exam Const: COMMON NORMALS: no acute distress and patient oriented x3 Resp: COMMON NORMALS: normal respiratory effort, No retractions, No use of accessory muscles and clear to auscultation bilaterally AUSCULTATION: clear to auscultation bilaterally Cardio: COMMON NORMALS: regular rate, regular rhythm, S1 normal heart sound present and S2 normal heart sound present RATE: regular rate RHYTHM: regular rhythm HEART SOUNDS: S1 normal heart sound present and S2 normal heart sound present GI: COMMON NORMALS: Normal to inspection, nondistended, normoactive bowel sounds present, Soft to palpation and non-tender PALPATION: Yes Soft to palpation Extremity: COMMON NORMALS: no pedal edema Neuro: COMMON NORMALS: patient oriented x3 Psych: COMMON NORMALS: mental status grossly normal Discharge Data Studies Completed and Pending Completed Studies During Hospitalization Category Date Time Status CTA chest [CT angio chest PE protcl [id number]] Urgent Cat Scan 05/07/22 16:08 Completed XR chest 1V portable [id number] Stat Exams 05/07/22 15:15 Completed CV. echo complete* [id number] Routine Ultrasound 05/07/22 17:58 Completed Pending at discharge Category Date Time Status Complete Blood Count w/Auto AM LABS Lab 05/09/22 04:00 Ordered Complete Blood Count w/Auto AM LABS Lab 05/10/22 04:00 Ordered Comprehensive Metabolic Panel AM LABS Lab 05/09/22 04:00 Ordered Comprehensive Metabolic Panel AM LABS Lab 05/10/22 04:00 Ordered Magnesium AM LABS Lab 05/09/22 04:00 Ordered Magnesium AM LABS Lab 05/10/22 04:00 Ordered Phosphorus AM LABS Lab 05/09/22 04:00 Ordered Phosphorus AM LABS Lab 05/10/22 04:00 Ordered Radiology Impressions Chest X-Ray 05/07/22 15:15 IMPRESSION: Possible left upper lobe ground-glass opacity versus artifact. Chest CTA 05/07/22 16:08 IMPRESSION: 1. No pulmonary embolism. 2. Moderate centrilobular emphysema. no consolidation. 3. Incidental findings above. Laboratory Results WBC 5.0 10^3/uL (4.0-10.0) 05/08/22 04:07 RBC 5.09 10^6/uL (4.1-5.3) 05/08/22 04:07 Hgb 16.7 g/dL (11.7-16.6) H 05/08/22 04:07 Hct 47.2 % (42.0-52.0) 05/08/22 04:07 MCV 92.7 fl (80-94) 05/08/22 04:07 MCH 32.8 pg (28.0-34.0) 05/08/22 04:07 MCHC 35.4 g/dL (30.0-36.0) 05/08/22 04:07 RDW 12.4 % (12.1-15.1) 05/08/22 04:07 Plt Count 202 10^3/cmm (130-400) 05/08/22 04:07 MPV 10.0 fL (7.4-10.4) 05/08/22 04:07 Neut % (Auto) 84.1 % 05/08/22 04:07 Lymph % (Auto) 12.7 % 05/08/22 04:07 [place] % (Auto) 1.4 % 05/08/22 04:07 Eos % (Auto) 0.2 % 05/08/22 04:07 Baso % (Auto) 1.0 % 05/08/22 04:07 Neut # (Auto) 4.19 10^3/uL (1.8-7.7) 05/08/22 04:07 Lymph # (Auto) 0.6 10^3/uL (0.8-4.8) L 05/08/22 04:07 [place] # (Auto) 0.1 10^3/uL (0.2-0.9) L 05/08/22 04:07 Eos # (Auto) 0.0 10^3/uL (0.0-0.8) 05/08/22 04:07 Baso # (Auto) 0.1 10^3/uL (0.0-0.1) 05/08/22 04:07 Nucleated RBC % (auto) 0 % 05/08/22 04:07 Nucleated RBCs # 0.0 /100WBC 05/08/22 04:07 D-Dimer 0.94 ug/mIFEU (0-0.59) H 05/07/22 15:15 Sodium 139 mmol/L (136-145) 05/08/22 04:07 Potassium 4.3 mmol/L (3.5-5.1) 05/08/22 04:07 Chloride 104 mmol/L (98-107) 05/08/22 04:07 Carbon Dioxide 24 mmol/L (22-29) 05/08/22 04:07 Anion Gap 15.3 (5-19) 05/08/22 04:07 BUN 9 mg/dL (6-20) 05/08/22 04:07 Creatinine 0.6 mg/dL (0.7-1.2) L 05/08/22 04:07 GFR Calculation 139.4 mL/min (90-130) H 05/08/22 04:07 Glucose 106 mg/dL (65-115) 05/08/22 04:07 Estimat Average Glucose 97 05/07/22 15:15 Hemoglobin A1c 5.0 % (4.0-6.0) 05/07/22 15:15 Calculated Osmolality 287 mOsm/kg (285-295) 05/08/22 04:07 Calcium 8.9 mg/dL (8.5-10.5) 05/08/22 04:07 Phosphorus 2.3 mg/dL (2.5-4.5) L 05/08/22 04:07 Magnesium 2.0 mg/dL (1.7-2.3) 05/08/22 04:07 Total Bilirubin 0.7 mg/dL (0.15-1.2) 05/08/22 04:07 AST 33 U/L (0-40) 05/08/22 04:07 ALT 14 U/L (0-41) 05/08/22 04:07 Alkaline Phosphatase 83 IU/L (40-130) 05/08/22 04:07 Troponin T Baseline 8 ng/L (0-15) 05/07/22 15:15 Troponin T 120 Minute 8.37 ng/L (0-15) 05/07/22 17:15 Delta Troponin T 0.37 ABS# (0-10) 05/07/22 17:15 Troponin T Hi Sens 6Hr 8.92 ng/L (0-15) 05/07/22 21:13 Troponin T Hi Sens 6Hr Delta 0.92 ng/L (0-12) 05/07/22 21:13 Total Protein 7.0 g/dL (6.6-8.7) 05/08/22 04:07 Albumin 4.0 g/dL (3.5-5.2) 05/08/22 04:07 Globulin 3.0 g/dL (1.3-4.6) 05/08/22 04:07 Triglycerides 66 mg/dL (0-150) 05/07/22 15:15 Cholesterol 154 mg/dL (0-200) 05/07/22 15:15 LDL Cholesterol, Calc 72 mg/dL (50-129) 05/07/22 15:15 HDL Cholesterol 69 mg/dL (60-100) 05/07/22 15:15 LDL/HDL Ratio 1.04 RATIO (0.00-3.22) 05/07/22 15:15 Cholesterol/HDL Ratio 2.23 mg/dL (1.0-5.00) 05/07/22 15:15 Lipase 33 U/L (13-60) 05/07/22 15:15 TSH 0.90 uIU/mL (0.27-4.20) 05/07/22 15:15 Coronavirus 229E (PCR) Not detected (NOT DETECT) 05/07/22 16:35 SARS-CoV-2 (PCR) Not detected (NOT DETECT) 05/07/22 16:35 Vitals Last Vital Signs Temp 98.9 F 05/08/22 07:47 Pulse 79 05/08/22 08:54 Resp 16 05/08/22 08:51 BP 174/91 05/08/22 07:47 Pulse Ox 99 05/08/22 08:51 Discharge Plan Discharge Patient Disposition: Home Condition: Stable Prescriptions: New atorvastatin 40 mg Tablet 40 mg PO BEDTIME 30 Days Qty: 30 0RF prednisone 20 mg Tablet 40 mg PO DAILY 4 Days Qty: 8 0RF aspirin 81 mg Tablet,Delayed Release (Dr/Ec) 81 mg PO DAILY 30 Days Qty: 30 0RF nitroglycerin 0.4 mg Tablet, Sublingual 0.4 mg sublingual Q5M PRN (Reason: Chest Pain) 30 Days Qty: 30 0RF spironolactone 25 mg tablet 25 mg PO DAILY 30 Days Qty: 30 0RF Continued (DME) ASO to the Right See Rx Instructions .ROUTE .MEDSUPPLY Qty: 1 0RF Rx Instructions: As directed metoprolol succinate 25 mg tablet extended release 24 hr 25 mg PO DAILY@0600 0RF fluticasone propion-salmeterol [Advair Diskus] 250-50 mcg/dose blister with device 1 inh INHALATION BID@0800,1800 0RF Spiriva Respimat 2.5 mcg/actuation mist 2 puff INHALATION DAILY@0600 0RF pantoprazole 40 mg tablet,delayed release (DR/EC) 40 mg PO DAILY@0600 0RF fluticasone propionate 50 mcg/actuation spray,suspension 2 spray INTRANASAL DAILY@0600 0RF gabapentin 400 mg capsule 400 mg PO TID@06,12,18 0RF lisinopril 10 mg tablet 10 mg PO DAILY 0RF Symbicort 160-4.5 mcg/actuation HFA aerosol inhaler 2 puff INHALATION BID 0RF Daliresp 500 mcg Tablet 500 mcg PO DAILY 0RF Discharge Orders: Discharge Order (Routine); Ordered 05/08/22 Ordered By: London Sepulveda Referrals: Sheldon Banerjee DO [Primary Care Provider] - (Please call Monday to schedule a follow up appointment) Karen Camacho MD [Physician] - 4-7 days (Please call Monday to schedule a follow up appointment. ) Discharge Diet: Cardiac Discharge Activity: Resume usual activity Patient Instructions: Nitroglycerin (By mouth), Spironolactone (By mouth), Prednisone (By mouth), Aspirin (By mouth), Atorvastatin (By mouth), Chest Pain (DC), Chest Pain Stoplight Activity Restrictions/Additional Instructions: - If you have any recurrent chest pain go to the emergency room -Follow-up with cardiology early next week for consideration of stress testing -Use nitro as needed for chest pain -Please stop smoking Discharge Attestations Time Spent in Discharge Care*: less than 30 min Quality Metrics Clinical Quality Measures [ No reported AMI, CVA or VTE this stay] Coding Level of Care Code Acute Chg FW DC note Diagnoses Chest pain R07.9
== END 2022-05-08 11:35 | disposition home or self-care (01) ==
LOC: ER 16:13 → MEDSURG 21:08
PROVIDERS: Admitting Provider Family Medicine; Emergency Provider Emergency Medicine; PCP Family Medicine; Visit Provider Family Medicine
DX: R07.9 Chest pain, unspecified (principal); J44.9 Chronic obstructive pulmonary disease, unspecified; F17.210 Nicotine dependence, cigarettes, uncomplicated; I10 Essential (primary) hypertension; Z86.73 Personal history of transient ischemic attack (TIA), and cerebral infarction without residual deficits; I25.10 Atherosclerotic heart disease of native coronary artery without angina pectoris; J43.9 Emphysema, unspecified; F32.9 Major depressive disorder, single episode, unspecified
CPT/HCPCS: 71045; 71275; 80053; 80061; 83036; 83690; 83735; 84100; 84443; 84484; 85025; 85378; 87635; 93005; 93306; 94640; 96372; 96374; 96375; 99285; G0378; J1650; J2270; J2930; J7512; Q9967

== ENCOUNTER → 2023-12-20 10:08 | Outpatient (BNVA) | payer MEDICARE, MEDICAID, SELFPAY | PROVIDERS: PCP Registered Nurse; Visit Provider Surgery | DX: K46.9 Unspecified abdominal hernia without obstruction or gangrene (principal) | CPT/HCPCS: 99204 ==

== ENCOUNTER → 2023-12-28 09:57 | Outpatient (BNVA) | payer MEDICARE, MEDICAID, SELFPAY | PROVIDERS: PCP Registered Nurse; Visit Provider Family Medicine | DX: Z01.818 Encounter for other preprocedural examination (principal) | CPT/HCPCS: 80053; 85025 ==

== ENCOUNTER 2024-09-05 05:34 | Emergency (ER) | payer MEDICARE, SELFPAY ==
[2024-09-05 05:34] VITALS: BP 159/107; PULSE 67; RESP 18; TEMP 34.2; O2SAT 96; BMI 25.8
[2024-09-05 05:47] VITALS: BP 159/107; PULSE 74; O2SAT 95
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
[2024-09-05] MEDS: HYDROcodone-acetaminophen 5-325 mg Tablet 1 TAB PO (06:10)
[2024-09-05 06:12] LABS: Basophils # 0.1 10^3/uL (0.0-0.1); Basophils % 1.3 %; Eosinophils # 0.2 10^3/uL (0.0-0.8); Eosinophils % 2.3 %; Hematocrit 50.9 % (37-53); Lymphocytes # 1.8 10^3/uL (0.8-4.8); Lymphocytes % 20.3 %; Mean Corpuscular Hemoglobin 33.5 pg (27-33); Mean Corpuscular Volume 95.9 fl (82-101); Monocytes # 0.5 10^3/uL (0.2-0.9); Neutrophils # 6.31 10^3/uL (1.8-7.7); Neutrophils % 70.7 %; Nucleated Red Blood Cells % 0 %; Platelet Count 257 10^3/cmm (157-399); Red Blood Count 5.31 10^6/uL (3.85-5.65); Red Cell Distribution Width 12.6 % (12.1-15.1); White Blood Count 8.95 10^3/uL (3.29-11.43)
[2024-09-05 06:22] VITALS: BP 143/87; PULSE 76; O2SAT 97
[2024-09-05 06:23] LABS: Alanine Aminotransferase 22 U/L (0-41); Albumin Level 4.6 g/dL (3.5-5.2); Alkaline Phosphatase 111 U/L (40-130); Anion Gap 16.4 (5-19); Aspartate Amino Transferase 42 U/L (0-40); Blood Urea Nitrogen 8 mg/dL (6-20); Calcium 8.4 mg/dL (8.5-10.5); Carbon Dioxide 26 mmol/L (22-29); Chloride 105 mmol/L (98-107); Creatinine Clr Calc Pharmacy 163.7367; Globulin 3.1 g/dL (1.3-4.6); Glomerular Filtration Rate 170.8 mL/min (90-130); Glucose 76 mg/dL (65-115); Osmolality Calculated 293 mOsm/kg (285-295); Potassium 4.4 mmol/L (3.5-5.1); Sodium 143 mmol/L (136-145); Total Bilirubin 0.3 mg/dL (0.15-1.2); Total Protein 7.7 g/dL (6.6-8.7)
[2024-09-05 06:30] VITALS: BP 133/77; PULSE 77; O2SAT 95
[2024-09-05 07:02] VITALS: TEMP 36.5
[2024-09-05 07:50] VITALS: BP 135/68; PULSE 88; TEMP 36.5; O2SAT 95
== END 2024-09-05 08:23 | disposition home or self-care (01) ==
PROVIDERS: Emergency Provider Emergency Medicine; PCP Family Medicine
DX: S80.212A Abrasion, left knee, initial encounter (principal); X58.XXXA Exposure to other specified factors, initial encounter; M54.50 Low back pain, unspecified; J44.9 Chronic obstructive pulmonary disease, unspecified; J43.9 Emphysema, unspecified; I10 Essential (primary) hypertension
CPT/HCPCS: 72100; 73130; 73562; 80053; 85025; 99284

== ENCOUNTER 2024-10-13 16:24 | Inpatient (IN) | payer MEDICARE, SELFPAY ==
[2024-10-13 16:29] VITALS: BP 146/92; PULSE 94; RESP 17; TEMP 37.2; O2SAT 95
--- NOTE | 2024-10-13 16:30 | ECG_ITS ---
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
--- NOTE | 2024-10-13 16:31 | W.ED.PSYCHS ---
HPI - Psych General: Chief Complaint: Psychiatric Symptoms Stated Complaint: SI Time Seen by Provider: 10/13/24 16:26 Source: patient and EMS Mode of arrival: EMS Limitations: no limitations History of Present Illness: 59-year-old male is here with EMS for suicidal ideation he states he is severely depressed has been having thoughts to kill himself by walking into traffic. He has had history of depression in the past denies any worsening improving factors. Associated symptoms: Reports depression and suicidal ideation Related Data Home Medications Medication Instructions Recorded Confirmed budesonide-formoterol HFA 160 2 puff inhalation DAILY 12/28/23 01/12/24 mcg-4.5 mcg/actuation aerosol inhaler (Breyna) Previous Rx's Medication Instructions Recorded ASO to the Right #1 ea 05/25/21 albuterol sulfate 90 mcg/actuation 1 inh inhalation QID #8.5 grams 12/15/23 aerosol inhaler (Ventolin HFA) lisinopril 30 mg tablet 30 mg PO DAILY 90 days #90 tabs 01/12/24 metoprolol succinate 25 mg See Rx Instructions .Route 01/29/24 tablet,extended release 24 hr .COMPLEX #90 tabs Allergies Allergy/AdvReac Type Severity Reaction Status Date / Time No Known Allergies Allergy Verified 12/28/23 09:43 Review of Systems Const: Denies: fever(s), chills, body aches or change in appetite ENMT: Denies: throat pain or dental pain Card: Denies: chest pain Resp: Denies: dyspnea GI: Denies: abdominal pain, nausea, vomiting or diarrhea Musc: Denies: neck pain or back pain Skin/Breast: Denies: rash Neuro: Denies: headache(s) Psych: Reports: depression and suicidal ideation [facility] PFSH: Medical History DDD (degenerative disc disease) PTSD (post-traumatic stress disorder) Depression Essential (primary) hypertension Tobacco abuse COPD (chronic obstructive pulmonary disease) Emphysema, unspecified GERD (gastroesophageal reflux disease) Hypertension Surgical History H/O rotator cuff surgery Family History Mother Hyperlipidemia Social History Smoking and tobacco/nicotine status: never used tobacco/nicotine Alcohol intake: never Substance/Drug Use: never Lives independently: Yes Marital status: / service: Yes status: Retired Current occupational status: retired Do you think of yourself as: Straight/Heterosexual Current gender identity: Male Physical Exam Const: COMMON NORMALS: no acute distress, patient oriented x3 and healthy appearing HENMT: COMMON NORMALS: normocephalic and atraumatic HEAD & SCALP: normocephalic and atraumatic Eye: COMMON NORMALS: conjunctivae normal CONJUNCTIVA: Yes conjunctivae normal Neck/C-Spine: COMMON NORMALS: full ROM and supple Chest: COMMONS NORMALS: normal inspection of the chest Resp: COMMON NORMALS: normal respiratory effort Cardio: COMMON NORMALS: regular rate, regular rhythm and No murmurs present (Cardio) RATE: regular rate RHYTHM: regular rhythm Extremity: COMMON NORMALS: normal to inspection and full ROM Neuro: COMMON NORMALS: patient oriented x3, moves all extremities and no focal motor deficits Psych: COMMON NORMALS: mental status grossly normal, Normal thought process present and cooperative THOUGHT PROCESS: Normal thought process present THOUGHT CONTENT: Yes Suicidality present Skin: COMMON NORMALS: no rashes or lesions noted and no wounds GENERAL SKIN EXAM: no rashes or lesions noted Course Vital Signs: Vital signs: Vital Signs Temperature 98.9 F 10/13/24 16:29 Pulse Rate 94 10/13/24 16:29 Respiratory Rate 17 10/13/24 16:29 Blood Pressure 146/92 10/13/24 16:29 Pulse Oximetry 95 10/13/24 16:29 Oxygen Delivery Me thod Room Air 10/13/24 16:29 MDM - Psych Medical Decision Making Patient presents here with suicidal ideations he is medically cleared excepted at [facility] will transfer there due to bed availability Medical Records I reviewed the patient's medical records. Lab Data I reviewed the patient's lab results. 10/13/24 17:18 10/13/24 17:18 Radiology Impressions Chest X-Ray 10/13/24 18:01 IMPRESSION: Pulmonary hyperexpansion. No acute findings. Laboratory Results WBC 11.50 10^3/uL (3.29-11.43) H 10/13/24 17:18 RBC 4.83 10^6/uL (3.85-5.65) 10/13/24 17:18 Hgb 16.10 g/dL (11.27-16.99) 10/13/24 17:18 Hct 45.7 % (37-53) 10/13/24 17:18 MCV 94.6 fl (82-101) 10/13/24 17:18 MCH 33.3 pg (27-33) H 10/13/24 17:18 MCHC 35.2 g/dL (30-55) 10/13/24 17:18 RDW 12.1 % (12.1-15.1) 10/13/24 17:18 Plt Count 200 10^3/cmm (157-399) 10/13/24 17:18 MPV 9.4 fL (7.4-10.4) 10/13/24 17:18 Neut % (Auto) 66.8 % 10/13/24 17:18 Lymph % (Auto) 25.4 % 10/13/24 17:18 Imperial % (Auto) 5.7 % 10/13/24 17:18 Eos % (Auto) 1.0 % 10/13/24 17:18 Baso % (Auto) 0.7 % 10/13/24 17:18 Neut # (Auto) 7.69 10^3/uL (1.8-7.7) 10/13/24 17:18 Lymph # (Auto) 2.9 10^3/uL (0.8-4.8) 10/13/24 17:18 Imperial # (Auto) 0.7 10^3/uL (0.2-0.9) 10/13/24 17:18 Eos # (Auto) 0.1 10^3/uL (0.0-0.8) 10/13/24 17:18 Baso # (Auto) 0.1 10^3/uL (0.0-0.1) 10/13/24 17:18 Nucleated RBC % (auto) 0 % 10/13/24 17:18 Nucleated RBCs # 0.0 /100WBC 10/13/24 17:18 Sodium 136 mmol/L (136-145) 10/13/24 17:18 Potassium 3.7 mmol/L (3.5-5.1) 10/13/24 17:18 Chloride 100 mmol/L (98-107) 10/13/24 17:18 Carbon Dioxide 23 mmol/L (22-29) 10/13/24 17:18 Anion Gap 16.7 (5-19) 10/13/24 17:18 BUN 15 mg/dL (6-20) 10/13/24 17:18 Creatinine 0.6 mg/dL (0.7-1.2) L 10/13/24 17:18 GFR Calculation 138.4 mL/min (90-130) H 10/13/24 17:18 Glucose 141 mg/dL (65-115) H 10/13/24 17:18 Calculated Osmolality 285 mOsm/kg (285-295) 10/13/24 17:18 Calcium 9.2 mg/dL (8.5-10.5) 10/13/24 17:18 Total Bilirubin 0.6 mg/dL (0.15-1.2) 10/13/24 17:18 AST 29 U/L (0-40) 10/13/24 17:18 ALT 15 U/L (0-41) 10/13/24 17:18 Alkaline Phosphatase 98 U/L (40-130) 10/13/24 17:18 Total Protein 6.9 g/dL (6.6-8.7) 10/13/24 17:18 Albumin 4.1 g/dL (3.5-5.2) 10/13/24 17:18 Globulin 2.8 g/dL (1.3-4.6) 10/13/24 17:18 Salicylates < 0.3 mg/dL (3-10) L 10/13/24 17:18 Urine Opiates Screen Negative ng/mL (Negative) 10/13/24 16:40 Acetaminophen < 5.0 ug/mL (10-30) L 10/13/24 17:18 Ur Barbiturates Screen Negative ng/mL (Negative) 10/13/24 16:40 Ur Phencyclidine Scrn Negative ng/mL (Negative) 10/13/24 16:40 Ur Amphetamines Screen Positive ng/mL (Negative) H 10/13/24 16:40 U Benzodiazepines Scrn Negative ng/mL (Negative) 10/13/24 16:40 Urine Cocaine Screen Negative ng/mL (Negative) 10/13/24 16:40 U Marijuana (THC) Screen Positive ng/mL (Negative) H 10/13/24 16:40 Ethyl Alcohol < 10 mg/dL (0-10) 10/13/24 17:18 Coronavirus (PCR) Negative (Negative) 10/13/24 16:47 Influenza A (PCR) Negative (Negative) 10/13/24 16:47 Influenza Type B (PCR) Negative (Negative) 10/13/24 16:47 RSV (PCR) Negative (Negative) 10/13/24 16:47 All radiology interpretation(s) finalized by discharge EKG Data EKG 1: I personally reviewed and interpreted this EKG as follows: EKG interpretation date: 10/13/24 EKG interpretation time: 18:02 Interpretation: nsr hr [address] elevation qrs 90 qtc 437 Discharge Plan Discharge Patient Disposition: Xfer Psychiatric Hosp Clinical Impression: Suicidal ideation Prescriptions: No Action (DME) ASO to the Right See Rx Instructions .ROUTE .MEDSUPPLY Qty: 1 0RF Rx Instructions: As directed lisinopril 30 mg tablet 30 mg PO DAILY 90 Days Qty: 90 1RF Rx Instructions: Dosage change budesonide-formoterol [Breyna] 160-4.5 mcg/actuation HFA aerosol inhaler 2 puff inhalation DAILY albuterol sulfate [Ventolin HFA] 90 mcg/actuation HFA aerosol inhaler 1 inh inhalation QID Qty: 8.5 0RF metoprolol succinate 25 mg tablet extended release 24 hr See Rx Instructions .ROUTE .COMPLEX Qty: 90 0RF Dose Instruction: TAKE 1 TABLET BY MOUTH DAILY AT 6 AM Rx Instructions: TAKE 1 TABLET BY MOUTH DAILY AT 6 AM Referrals: Sheldon Banerjee DO [Primary Care Provider] - Coding Level of Care Code ED [facility]
[2024-10-13 17:03] LABS: Amphetamines Screen Urine Positive (Negative); Barbiturates Screen Urine Negative (Negative); Benzodiazepines Screen Urine Negative (Negative); Cocaine Screen Urine Negative (Negative); Opiate Screen Urine Negative (Negative); PCP Screen Urine Negative (Negative); THC Screen Urine Positive (Negative)
[2024-10-13 17:34] LABS: Basophils # 0.1 10^3/uL (0.0-0.1); Basophils % 0.7 %; Eosinophils # 0.1 10^3/uL (0.0-0.8); Hematocrit 45.7 % (37-53); Lymphocytes # 2.9 10^3/uL (0.8-4.8); Lymphocytes % 25.4 %; Mean Corpuscular HGB Conc 35.2 g/dL (30-55); Mean Corpuscular Hemoglobin 33.3 pg (27-33); Mean Corpuscular Volume 94.6 fl (82-101); Mean Platelet Volume 9.4 fL (7.4-10.4); Monocytes # 0.7 10^3/uL (0.2-0.9); Monocytes % 5.7 %; Neutrophils # 7.69 10^3/uL (1.8-7.7); Neutrophils % 66.8 %; Nucleated Red Blood Cells % 0 %; Platelet Count 200 10^3/cmm (157-399); Red Blood Count 4.83 10^6/uL (3.85-5.65); Red Cell Distribution Width 12.1 % (12.1-15.1)
[2024-10-13 17:35] LABS: Covid PCR NEGATIVE (Negative); Influenza A NEGATIVE (Negative); Influenza B NEGATIVE (Negative); Respiratory Syncytial Virus Ce NEGATIVE (Negative)
--- NOTE | 2024-10-13 17:52 | PC.NURSE ---
96 hour hold rights read and reviewed with patient. Jeovany from security present during reading of rights. Patient verbalized understandings and copy of rights given to patient.
[2024-10-13 17:57] LABS: Alanine Aminotransferase 15 U/L (0-41); Albumin Level 4.1 g/dL (3.5-5.2); Alkaline Phosphatase 98 U/L (40-130); Anion Gap 16.7 (5-19); Aspartate Amino Transferase 29 U/L (0-40); Blood Urea Nitrogen 15 mg/dL (6-20); Calcium 9.2 mg/dL (8.5-10.5); Carbon Dioxide 23 mmol/L (22-29); Chloride 100 mmol/L (98-107); Creatinine Clr Calc Pharmacy 131.3541; Globulin 2.8 g/dL (1.3-4.6); Glomerular Filtration Rate 138.4 mL/min (90-130); Glucose 141 mg/dL (65-115); Osmolality Calculated 285 mOsm/kg (285-295); Potassium 3.7 mmol/L (3.5-5.1); Sodium 136 mmol/L (136-145); Total Bilirubin 0.6 mg/dL (0.15-1.2); Total Protein 6.9 g/dL (6.6-8.7)
[2024-10-13 17:58] LABS: Acetaminophen < 5.0 ug/mL (10-30); Alcohol Level < 10 mg/dL (0-10); Salicylate < 0.3 mg/dL (3-10)
--- NOTE | 2024-10-13 18:01 | XRR_ITS ---
PROCEDURE INFORMATION: Exam: XR Chest Exam date and time: 10/13/2024 6:03 PM Age: 59 years old Clinical indication: Patient HX: Medical clearance for psych transfer. History of copd. TECHNIQUE: Imaging protocol: Radiologic exam of the chest. Views: 1 view. COMPARISON: CT angio chest PE protcl [id number] 05/07/2022 5:58 PM FINDINGS: Lungs: The lungs are mildly hyperexpanded. No focal consolidation. Pleural spaces: Unremarkable. No pleural effusion. No pneumothorax. Heart/Mediastinum: Unremarkable. No cardiomegaly. Bones/joints: Old right-sided rib fractures. XR/XR chest 1V portable [id number] IMPRESSION: Pulmonary hyperexpansion. No acute findings.
[2024-10-14 00:20] VITALS: RESP 16
--- NOTE | 2024-10-14 01:30 | PC.NURSE ---
to room. pt resting comfortably with eyes closed. resps even and non labored. no needs identified. bed low/lcoked. sitter in place. will continue to monitor.
--- NOTE | 2024-10-14 05:33 | PC.NURSE ---
to room. pt resting comfortably with eyes closed. resps even and non labored. no needs identified. bed low/lcoked. sitter in place. will continue to monitor.
--- NOTE | 2024-10-14 10:59 | PC.PHAR ---
Patient states he takes these medications . [facility] . Last fill dates are stated and the nurse at the center stated those are true and he has a lot in his bottles so, it looks like he hasn't been taking them.
[2024-10-14 14:00] VITALS: BP 138/87; RESP 18; O2SAT 96
[2024-10-14 18:09] VITALS: BP 153/101; PULSE 92; RESP 16; TEMP 36.6; O2SAT 96
[2024-10-14 18:13] VITALS: BMI 24.3
[2024-10-14] MEDS: nicotine 4 mg lozenge MUCOUS MEM (18:41)
[2024-10-14] MEDS: acetaminophen 325 mg Tablet 650 MG PO (18:41)
[2024-10-14] MEDS: hyDROXYzine 25 mg Capsule 50 MG PO (18:41)
[2024-10-14] MEDS: trazodone 50 mg Tablet PO (20:41)
[2024-10-14] MEDS: gabapentin 400 mg Capsule PO (20:41)
[2024-10-14 21:05] VITALS: BP 142/87; PULSE 91; RESP 16; TEMP 36.9; O2SAT 98
[2024-10-15 06:00] VITALS: BP 135/86; PULSE 96; RESP 16; TEMP 36.6; O2SAT 97
[2024-10-15] MEDS: fixodent 39 gm Tube 1 APPLIC DENTAL (09:02)
[2024-10-15] MEDS: lisinopril 10 mg Tablet 30 MG PO (09:02)
[2024-10-15] MEDS: fluoxetine 20 mg Capsule 40 MG PO (09:03)
[2024-10-15] MEDS: gabapentin 400 mg Capsule PO ×3 (09:03→21:08)
[2024-10-15] MEDS: ibuprofen 600 mg Tablet PO (09:03)
[2024-10-15] MEDS: flu vacc pf 24-25 (6 mos+) SYRINGE 45 MCG IM (09:04)
[2024-10-15] MEDS: nicotine 21 mg Patch 1 PATCH TRANSDERMA (09:14)
[2024-10-15] MEDS: roflumilast 500 mcg Tablet PO (11:52)
[2024-10-15 14:00] VITALS: RESP 16
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
[2024-10-15] MEDS: albuterol 2.5 mg/3 mL Neb INHALATION (17:10)
[2024-10-15 17:11] VITALS: PULSE 67; RESP 16; O2SAT 98
--- NOTE | 2024-10-15 17:12 | PC.RESP ---
resp request for service order placed stating pt has copd and sob, pt uses an albuterol inhaler at home. order placed for prn albuterol txs for pt
--- NOTE | 2024-10-15 19:17 | PC.NURSE ---
Morning assessment Patient calm during assessment. Patient reports feelings of anxiety and depression. Patient endorses pain 7/10 in right groin from hernia that first appeared 6 months ago. All of patient's questions answered.
[2024-10-15 20:59] VITALS: BP 161/81; PULSE 82; RESP 17; TEMP 36.5; O2SAT 96
[2024-10-15] MEDS: hyDROXYzine 25 mg Capsule 50 MG PO (21:08)
[2024-10-15] MEDS: trazodone 50 mg Tablet PO (21:08)
[2024-10-16 06:00] VITALS: BP 135/85; PULSE 82; RESP 18; TEMP 36.6; O2SAT 97
[2024-10-16] MEDS: fixodent 39 gm Tube 1 APPLIC DENTAL (06:21)
[2024-10-16] MEDS: gabapentin 400 mg Capsule PO ×3 (08:17→21:04)
[2024-10-16] MEDS: fluoxetine 20 mg Capsule 40 MG PO (08:17)
[2024-10-16] MEDS: lisinopril 10 mg Tablet 30 MG PO (08:17)
[2024-10-16] MEDS: roflumilast 500 mcg Tablet PO (08:17)
[2024-10-16] MEDS: nicotine 21 mg Patch 1 PATCH TRANSDERMA (08:21)
[2024-10-16] MEDS: ibuprofen 600 mg Tablet PO (08:59)
[2024-10-16] MEDS: OLANZapine 5 mg ODT PO (09:00)
--- NOTE | 2024-10-16 09:04 | W.PM.NPUPNS ---
Subjective NPU Subjective: Patient presented today reporting that he is struggling with pain in his inguinal area preliminary observation very suggestive of inguinal hernia. We discussed the risks, benefits and alternatives of getting a surgery consult given his level of pain and lack of appropriate follow-up. He endorsed an openness and willingness to get that consult. We discussed continuing his current medications and considering changes. He is working with the social work team to identify appropriate outpatient options and even possible residential options that may assist him given his homeless status. He denies any side effects to the medications. Mental Status Exam MSE Comments: This is a well-nourished well-developed white male in hospital scrubs with adequate grooming and eye contact. No abnormal movements except mild psychomotor retardation. He was cooperative with exam in mild to moderate distress. Speech was decreased in rate, productivity and decreased in volume. Mood described as anxious, His affect was congruent and subdued. Thought process was linear and organized. Thought content: Patient denied active suicidal or homicidal ideation. There were no delusions reported or noted, he denied any auditory or visual hallucinations. History of suicidal attempts, but no current thoughts of self-harm or suicide. No current thoughts of harming others. Past experiences of visual hallucinations, including an incident where he thought he was talking to the devil. Past feelings of paranoia, believing people were out to get him. Constant anxiety for about 20 years. History of major depression and bipolar disorder. Mood described as anxious and nervous. Stressors include homelessness for almost a year and a history of substance abuse. Attention and concentration were intact and memory appeared mostly reliable but none were formally tested. He is alert and oriented x3. Insight and judgment appeared limited, impulse control appears limited versus impaired.] Vitals/I&O/Wt Last Vital Signs Temp 97.8 F 10/16/24 06:00 Pulse 82 10/16/24 06:00 Resp 18 10/16/24 06:00 BP 135/85 10/16/24 06:00 Pulse Ox 97 10/16/24 06:00 O2 Del Method Room Air 10/16/24 06:00 Weight last 48 hrs Weight 72.575 kg Data NPU 10/13/24 17:18 10/13/24 17:18 A&P Assessment and plan (1) Suicidal ideation: (2) Major depressive disorder, recurrent: (3) AMBER (generalized anxiety disorder): Plan Patient is a 59-year-old male with a history of depression anxiety and some alcohol and marijuana addiction.The patient is experiencing significant mental health challenges, including major depression, bipolar disorder, and self-reported ADHD, as previously diagnosed. There is a history of psychotic episodes with homicidal and suicidal tendencies. The patient reports ongoing anxiety and nervousness, with a history of alcohol use disorder and a reduction in alcohol consumption recently. The patient has also experienced paranoia and auditory hallucinations in the past. There is a noted history of multiple suicide attempts. The patient is currently homeless, which may exacerbate the existing mental health conditions. 1.? Continue current medications and consider changes as indicated. 2. Engage? patient in individual ,milieu, and group therapy 3. ?TO-15 minute checks on the unit. 4.? Recommend sober living treatment at the highest level of care to which the patient is willing to commit. 5. Obtain surgical consult on likely inguinal hernia. Will follow recommendations as indicated. Involuntary Hold Information 96 Hour Hold: 96 Hour Involuntary Admission: Yes 96 Hour Hold Ending Date: 10/18/24 96 Hour Hold Ending Time: 00:01 Attestations NPU Medical Necessity Statement*: Inpatient hospitalization is medically necessary and the clinically appropriate intervention at this time. We will monitor medications and make changes as indicated. The patient's likely length of stay 3-5 days. Coding Level of Care Code Acute Code for [facility] Fwd Diagnoses Suicidal ideation R45.851 Major depressive disorder, recurrent F33.9 AMBER (generalized anxiety disorder) F41.1
[2024-10-16] MEDS: albuterol 2.5 mg/3 mL Neb INHALATION (09:17)
[2024-10-16 09:18] VITALS: PULSE 76; RESP 18; O2SAT 98
[2024-10-16 09:22] VITALS: PULSE 80
[2024-10-16] MEDS: efferdent effervescent 1 EACH DENTAL (11:55)
[2024-10-16 14:00] VITALS: BP 121/70; PULSE 85; RESP 18; TEMP 36.4; O2SAT 96
--- NOTE | 2024-10-16 17:20 | P.CONIM_ITS ---
Providers/Reason For Consult 2 Consulting Physician/Specialty*: Dr. Dominick Jiménez DO/General Surgery Reason for Consult*: Right inguinal hernia Attending Physician: Moy Young MD Primary Care Provider: Sheldon Banerjee DO History of Present Illness History of Present Illness Lucian Banuelos is a 59 year old male who is currently in the neuropsychiatric unit the reported right groin pain. He reports that he has had a bulge in his right groin for the past 6 months. This causes him pain with palpation and lifting. The pain does not radiate. Resting to make the pain better. He denies any nausea or emesis Review of Systems 2 General: Reports: 10 or more systems reviewed and unremarkable except in HPI and below Medications/Allergies Home Medications Medication Instructions Recorded Confirmed Last Taken Type ASO to the Right #1 ea 05/25/21 10/14/24 Unknown Rx albuterol sulfate 90 mcg/actuation 1 inh inhalation QID #8.5 grams 12/15/23 10/14/24 Unknown Rx aerosol inhaler (Ventolin HFA) lisinopril 30 mg tablet 30 mg PO DAILY 90 days #90 tabs 01/12/24 10/14/24 Unknown Rx budesonide-formoterol HFA 160 1 puff inhalation TID 10/14/24 10/14/24 Unknown History mcg-4.5 mcg/actuation aerosol inhaler (Breyna) fluoxetine 20 mg capsule 40 mg PO DAILY 10/14/24 10/14/24 Unknown History gabapentin 400 mg capsule 400 mg PO TID 10/14/24 10/14/24 Unknown History metoprolol succinate 25 mg 25 mg PO DAILY 10/14/24 10/14/24 Unknown History tablet,extended release 24 hr zaleplon 10 mg capsule 10 mg PO BEDTIME 10/14/24 10/14/24 Unknown History Allergies Allergy/AdvReac Type Severity Reaction Status Date / Time No Known Allergies Allergy Verified 12/28/23 09:43 Current Medications Generic Name Dose Route Start Last Admin Trade Name Freq PRN Reason Stop Dose Admin Acetaminophen 650 mg 10/14/24 18:09 10/17/24 08:16 Acetaminophen 325 Mg Tablet PO 650 mg Q4H PRN Administration MILD PAIN Albuterol Sulfate 2.5 mg 10/15/24 17:00 10/16/24 09:17 Albuterol 2.5 Mg/3 Ml Neb INHALATION 2.5 mg Q6H.RESP PRN Administration SHORTNESS OF BREATH Denture Adhesive 1 applic 10/14/24 18:12 10/16/24 06:21 Fixodent 39 Gm Tube DENTAL 1 applic PRN PRN Administration denture adhesive Denture Adhesive 1 each 10/15/24 21:35 10/17/24 08:16 Efferdent Effervescent DENTAL 1 each PRN PRN Administration Cleaning Fluoxetine HCl 40 mg 10/15/24 09:00 10/17/24 08:16 Fluoxetine 20 Mg Capsule PO 40 mg DAILY LIZZETH Administration Gabapentin 400 mg 10/14/24 21:00 10/17/24 08:15 Gabapentin 400 Mg Capsule PO 400 mg TID LIZZETH Administration Hydroxyzine Pamoate 50 mg 10/14/24 18:09 10/17/24 08:16 Hydroxyzine 25 Mg Capsule PO 50 mg Q6H PRN Administration ANXIETY Ibuprofen 600 mg 10/14/24 18:38 10/16/24 08:59 Ibuprofen 600 Mg Tablet PO 600 mg Q6H PRN Administration MODERATE PAIN Lisinopril 30 mg 10/15/24 09:00 10/17/24 08:16 Lisinopril 10 Mg Tablet PO 30 mg DAILY LIZZETH Administration Nicotine 1 patch 10/14/24 18:09 10/17/24 08:17 Nicotine 21 Mg Patch TRANSDERMA 1 patch DAILY PRN Administration NICOTINE WITHDRAWAL Nicotine Polacrilex 4 mg 10/14/24 18:37 10/14/24 18:41 Nicotine 4 Mg Lozenge MUCOUS MEM 4 mg Q2H PRN Administration NICOTINE CRAVINGS Olanzapine 5 mg 10/14/24 18:09 10/16/24 09:00 Olanzapine 5 Mg Odt PO 5 mg Q4H PRN Administration Agitation/Psychosis Roflumilast 500 mcg 10/15/24 09:00 10/17/24 08:15 Roflumilast 500 Mcg Tablet PO 500 mcg DAILY LIZZETH Administration PFSH Acute 2 PFSH: Medical History DDD (degenerative disc disease) PTSD (post-traumatic stress disorder) Depression Essential (primary) hypertension Tobacco abuse COPD (chronic obstructive pulmonary disease) Emphysema, unspecified GERD (gastroesophageal reflux disease) Hypertension Surgical History H/O rotator cuff surgery Family History Mother Hyperlipidemia Social History Smoking and tobacco/nicotine status: never used tobacco/nicotine Alcohol intake: never Substance/Drug Use: never Lives independently: Yes Marital status: / service: Yes status: Retired Current occupational status: retired Do you think of yourself as: Straight/Heterosexual Current gender identity: Male Vitals/I&O/Wt Last Vital Signs Temp 97.7 F 10/17/24 06:00 Pulse 84 10/17/24 06:00 Resp 17 10/17/24 06:00 BP 149/85 10/17/24 06:00 Pulse Ox 96 10/17/24 06:00 O2 Del Method Room Air 10/17/24 06:00 Physical Exam 2 Narrative: General : Patient is well developed , no acute distress, oriented x3 Head : Normal cephalic, a-traumatic. Ears : Pinnae and external canal are normal. Hearing is normal. Eyes : PERRLA, Sclera and injection are normal. No conjunctival discharge. Nose : Mucous membranes are without erythema. Throat : buccal mucosa is normal, gums are without significant recession or hypertrophy. Lungs : Equal chest rise bilaterally, no use of accessory muscles, trachea is midline. Cor : Rate and rhythm are normal. Abdomen : Soft, ND, mild tenderness to palpation over a reducible right inguinal hernia, there is a small impulse in the left groin as well with Valsalva, no g/r/m Extremities : No edema, no cyanosis or clubbing, dorsalis pedis pulses are present bilaterally, non-tender to palpation of calves. Upper extremities are normal bilaterally. Back : non-tender to palpation, no CVA tenderness. Neuro : CN II - XII intact, Upper and lower extremities have equal and full strength Data 10/13/24 17:18 10/13/24 17:18 A&P Assessment and plan (1) Bilateral inguinal hernia: Plan There is no need at this time to acutely repair this chronic hernia. I do recommend that he gets an outpatient laparoscopic repair of bilateral inguinal hernias with mesh. He is asking for pain medication but I believe he is seeking. No acute surgical intervention. Follow-up as outpatient. No restrictions from a surgical standpoint Coding Level of Care Code 42839 Diagnoses Bilateral inguinal hernia K40.20
[2024-10-16 20:25] VITALS: BP 152/88; PULSE 82; RESP 18; TEMP 36.7; O2SAT 98
[2024-10-17 06:00] VITALS: BP 149/85; PULSE 84; RESP 17; TEMP 36.5; O2SAT 96
[2024-10-17] MEDS: gabapentin 400 mg Capsule PO ×3 (08:15→21:04)
[2024-10-17] MEDS: roflumilast 500 mcg Tablet PO (08:15)
[2024-10-17] MEDS: acetaminophen 325 mg Tablet 650 MG PO (08:16)
[2024-10-17] MEDS: lisinopril 10 mg Tablet 30 MG PO (08:16)
[2024-10-17] MEDS: fluoxetine 20 mg Capsule 40 MG PO (08:16)
[2024-10-17] MEDS: hyDROXYzine 25 mg Capsule 50 MG PO ×2 (08:16→21:03)
[2024-10-17] MEDS: efferdent effervescent 1 EACH DENTAL (08:16)
[2024-10-17] MEDS: nicotine 21 mg Patch 1 PATCH TRANSDERMA (08:17)
[2024-10-17] MEDS: ibuprofen 600 mg Tablet PO ×2 (12:11→21:04)
[2024-10-17 14:00] VITALS: BP 142/82; PULSE 78; RESP 18; TEMP 36.6; O2SAT 97
--- NOTE | 2024-10-17 14:35 | P.NPUPN_ITS ---
Subjective NPU 2 Subjective: Patient presented today reporting that things are going okay. He acknowledged feeling very positive about coming to the hospital and that he is working with the social work team on some possible residential treatment options that would allow him to get his surgery on Monday and then return to those facilities given that returning to being homeless after his surgery with likely be a contraindication to doing the procedures. He addressed the fact that his options seem to be opening up and we discussed the likelihood of figuring things out in the morning. He denied any side effects to the medications. Mental Status Exam 2 MSE Comments: This is a well-nourished well-developed white male in hospital scrubs with adequate grooming and eye contact. No abnormal movements except mild psychomotor retardation. He was cooperative with exam in mild to moderate distress. Speech was decreased in rate, productivity and decreased in volume. Mood described as anxious, His affect was congruent and subdued. Thought process was linear and organized. Thought content: Patient denied active suicidal or homicidal ideation. There were no delusions reported or noted, he denied any auditory or visual hallucinations. History of suicidal attempts, but no current thoughts of self-harm or suicide. No current thoughts of harming others. Past experiences of visual hallucinations, including an incident where he thought he was talking to the devil. Past feelings of paranoia, believing people were out to get him. Constant anxiety for about 20 years. History of major depression and bipolar disorder. Mood described as anxious and nervous. Stressors include homelessness for almost a year and a history of substance abuse. Attention and concentration were intact and memory appeared mostly reliable but none were formally tested. He is alert and oriented x3. Insight and judgment appeared limited, impulse control appears limited versus impaired.] Vitals/I&O/Wt Last Vital Signs Temp 97.7 F 10/17/24 06:00 Pulse 84 10/17/24 06:00 Resp 17 10/17/24 06:00 BP 149/85 10/17/24 06:00 Pulse Ox 96 10/17/24 06:00 O2 Del Method Room Air 10/17/24 06:00 Data NPU 10/13/24 17:18 10/13/24 17:18 A&P Assessment and plan (1) Suicidal ideation: (2) Major depressive disorder, recurrent: (3) AMBER (generalized anxiety disorder): Plan Patient is a 59-year-old male with a history of depression anxiety and some alcohol and marijuana addiction.The patient is experiencing significant mental health challenges, including major depression, bipolar disorder, and self- reported ADHD, as previously diagnosed. There is a history of psychotic episodes with homicidal and suicidal tendencies. The patient reports ongoing anxiety and nervousness, with a history of alcohol use disorder and a reduction in alcohol consumption recently. The patient has also experienced paranoia and auditory hallucinations in the past. There is a noted history of multiple suicide attempts. The patient is currently homeless, which may exacerbate the existing mental health conditions. 1.? Continue current medications and consider changes as indicated. Will discussed the possible increase in Prozac to 60. 2. Engage? patient in individual ,milieu, and group therapy 3. ?TO-15 minute checks on the unit. 4.? Recommend sober living treatment at the highest level of care to which the patient is willing to commit. 5. Obtain surgical consult on likely inguinal hernia. Will follow recommendations as indicated. Possible scheduling of patient on Monday for his repair which is actually going to need to be bilateral. 6. Treatment team looking for options for discharge that will support him being able to get his hernias repaired on Monday. Involuntary Hold Information 2 96 Hour Hold: 96 Hour Involuntary Admission: Yes 96 Hour Hold Ending Date: 10/18/24 96 Hour Hold Ending Time: 00:01 Other Hold: Hold End Date: 10/22/24 Attestations NPU 2 Medical Necessity Statement*: Inpatient hospitalization is medically necessary and the clinically appropriate intervention at this time. We will monitor medications and make changes as indicated. The patient's likely length of stay 2-4 days. Coding Level of Care Code Acute Code for [facility] Fwd Diagnoses Suicidal ideation R45.851 Major depressive disorder, recurrent F33.9 AMBER (generalized anxiety disorder) F41.1
[2024-10-17] MEDS: albuterol 2.5 mg/3 mL Neb INHALATION (18:36)
[2024-10-17 18:39] VITALS: PULSE 62; RESP 18; O2SAT 97
[2024-10-17 18:45] VITALS: PULSE 84
[2024-10-17 20:55] VITALS: BP 137/75; PULSE 84; RESP 16; TEMP 36.7; O2SAT 95
[2024-10-17] MEDS: trazodone 50 mg Tablet PO (21:04)
[2024-10-18 06:00] VITALS: BP 145/86; PULSE 66; RESP 18; TEMP 36.5; O2SAT 98
[2024-10-18] MEDS: roflumilast 500 mcg Tablet PO (08:23)
[2024-10-18] MEDS: acetaminophen 325 mg Tablet 650 MG PO (08:23)
[2024-10-18] MEDS: fluoxetine 20 mg Capsule 40 MG PO (08:23)
[2024-10-18] MEDS: lisinopril 10 mg Tablet 30 MG PO (08:23)
[2024-10-18] MEDS: nicotine 21 mg Patch 1 PATCH TRANSDERMA (08:24)
[2024-10-18] MEDS: gabapentin 400 mg Capsule PO ×2 (08:24→14:32)
[2024-10-18] MEDS: hyDROXYzine 25 mg Capsule 50 MG PO (08:24)
[2024-10-18] MEDS: OLANZapine 5 mg ODT PO (13:29)
[2024-10-18] MEDS: ibuprofen 600 mg Tablet PO (13:29)
[2024-10-18 14:00] VITALS: BP 162/96; PULSE 77; RESP 18; TEMP 36.6; O2SAT 99
[2024-10-18 15:04] VITALS: PULSE 80; RESP 16; O2SAT 94
--- NOTE | 2024-10-18 15:19 | DCPLANNER ---
IMM completed 10/18/2024 @ [id number] and pt was given a copy of rights.
--- NOTE | 2024-10-18 16:00 | PC.NURSE ---
PT REPORTS INCREASED ANXIETY. RN ADMINISTERED VISTARIL 50 MG THIS AM WITH EFFECTIVE RESULTS. PT THEN REQUESTED SOMETHING ELSE THIS AFTERNOON AND THIS RN ADMINISTERED ZYDIS 5 MG ORDERED FOR INCREASED ANXIETY. MEDICATION DEEMED EFFECTIVE. PT IS ANTICIPATING DISCHARGE THIS AFTERNOON TO [employer]ES. THIS RN AND STAFF WENT TO [facility] AND RETRIEVED PTS BELONGINGS AND SAT THEM IN THE ENTRANCE WAY SO HE CAN TAKE WITH HIM ON DISCHARGE. PT HAD A WHEELED DEVICE WITH 4 BACKPACKS ON THE CART.
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
[2024-10-18 17:11] VITALS: BP 162/96; PULSE 77; RESP 18; TEMP 36.7; O2SAT 99
== END 2024-10-18 18:50 | disposition home or self-care (01) | DRG 885 ==
LOC: ER 10-14 03:17 → NP 10-14 17:39
PROVIDERS: Admitting Provider Psychiatry & Neurology Psychiatry; Emergency Provider Emergency Medicine; PCP Family Medicine; Visit Provider Psychiatry & Neurology Psychiatry
DX: F33.9 Major depressive disorder, recurrent, unspecified (principal); R45.851 Suicidal ideations; Z59.02 Unsheltered homelessness; F41.1 Generalized anxiety disorder; F10.20 Alcohol dependence, uncomplicated; F12.20 Cannabis dependence, uncomplicated; Z91.51 Personal history of suicidal behavior; I10 Essential (primary) hypertension; J43.9 Emphysema, unspecified; K40.20 Bilateral inguinal hernia, without obstruction or gangrene, not specified as recurrent; Z76.5 Malingerer [conscious simulation]
CPT/HCPCS: 0241U; 36415; 71045; 80053; 80306; 80307; 85025; 90471; 90686; 93005; 94640; 97150; 97165; 99285; J7613

== ENCOUNTER → 2024-11-04 09:55 | Outpatient (BNVA) | payer MEDICARE, SELFPAY | PROVIDERS: PCP Family Medicine; Visit Provider Surgery | DX: K40.20 Bilateral inguinal hernia, without obstruction or gangrene, not specified as recurrent (principal) | CPT/HCPCS: 99204 ==

== ENCOUNTER 2024-11-19 18:22 | Emergency (ER) | payer MEDICARE, SELFPAY ==
[2024-11-19 18:45] VITALS: BP 146/80; PULSE 77; RESP 17; TEMP 36.9; O2SAT 96; BMI 23.6
[2024-11-19 19:04] LABS: Basophils # 0.1 10^3/uL (0.0-0.1); Basophils % 0.9 %; Eosinophils # 0.4 10^3/uL (0.0-0.8); Eosinophils % 4.8 %; Hematocrit 43.2 % (37-53); Lymphocytes # 2.7 10^3/uL (0.8-4.8); Lymphocytes % 31.4 %; Mean Corpuscular HGB Conc 34.3 g/dL (30-55); Mean Corpuscular Hemoglobin 31.9 pg (27-33); Mean Corpuscular Volume 93.1 fl (82-101); Mean Platelet Volume 9.1 fL (7.4-10.4); Monocytes # 0.6 10^3/uL (0.2-0.9); Monocytes % 6.6 %; Neutrophils # 4.83 10^3/uL (1.8-7.7); Neutrophils % 56.1 %; Nucleated Red Blood Cells % 0 %; Platelet Count 213 10^3/cmm (157-399); Red Blood Count 4.64 10^6/uL (3.85-5.65); White Blood Count 8.61 10^3/uL (3.29-11.43)
[2024-11-19 19:22] LABS: Alanine Aminotransferase 20 U/L (0-41); Albumin Level 3.7 g/dL (3.5-5.2); Alkaline Phosphatase 82 U/L (40-130); Anion Gap 12.1 (5-19); Aspartate Amino Transferase 20 U/L (0-40); Blood Urea Nitrogen 10 mg/dL (6-20); Calcium 8.8 mg/dL (8.5-10.5); Carbon Dioxide 24 mmol/L (22-29); Chloride 107 mmol/L (98-107); Creatinine Clr Calc Pharmacy 131.2812; Globulin 2.8 g/dL (1.3-4.6); Glomerular Filtration Rate 138.4 mL/min (90-130); Glucose 93 mg/dL (65-115); Lipase 45 U/L (13-60); Osmolality Calculated 287 mOsm/kg (285-295); Potassium 4.1 mmol/L (3.5-5.1); Sodium 139 mmol/L (136-145); Total Bilirubin 0.2 mg/dL (0.15-1.2); Total Protein 6.5 g/dL (6.6-8.7)
--- NOTE | 2024-11-19 20:19 | ED_ITS ---
HPI - Male Genitourinary 2 General: Chief complaint: Urogenital-Male Stated complaint: Hernia Pain Time Seen by Provider: 11/19/24 20:11 History of Present Illness: Patient presents to the ER with complaints of right inguinal hernia that is worsened a couple hours. He said his pubic area is more swollen and painful SWELLING all the way down to his scrotum. He does have appointment with Dr. Jiménez general surgery to have this fixed on the . Related Data Home Medications Medication Instructions Recorded Confirmed budesonide-formoterol HFA 160 1 puff inhalation TID 10/14/24 11/04/24 mcg-4.5 mcg/actuation aerosol inhaler (Breyna) Previous Rx's Medication Instructions Recorded ASO to the Right #1 ea 05/25/21 albuterol sulfate 90 mcg/actuation 1 inh inhalation QID #8.5 grams 12/15/23 aerosol inhaler (Ventolin HFA) fluoxetine 20 mg capsule 40 mg (2 x 20 mg) PO DAILY 30 days 10/18/24 #60 caps gabapentin 400 mg capsule 400 mg PO TID 30 days #90 caps 10/18/24 hydroxyzine pamoate 25 mg capsule 50 mg (2 x 25 mg) PO Q6H PRN 10/18/24 Anxiety 30 days #120 caps lisinopril 30 mg tablet 30 mg PO DAILY 90 days #90 tabs 10/18/24 metoprolol succinate 25 mg 25 mg PO DAILY 30 days #30 tabs 10/18/24 tablet,extended release 24 hr olanzapine 5 mg disintegrating 5 mg PO DAILY PRN 10/18/24 tablet Agitation/Psychosis 30 days #30 tabs roflumilast 500 mcg tablet 500 mcg PO DAILY 30 days #30 tabs 10/18/24 trazodone 50 mg tablet 50 mg PO BEDTIME PRN Sleep 30 days 10/18/24 #30 tabs Allergies Allergy/AdvReac Type Severity Reaction Status Date / Time No Known Allergies Allergy Verified 11/19/24 18:48 Review of Systems 2 General: Reports: 10 or more systems reviewed and unremarkable except in HPI and below PFSH ED 2 PFSH: Medical History Psychiatric care DDD (degenerative disc disease) PTSD (post-traumatic stress disorder) Depression Essential (primary) hypertension Tobacco abuse COPD (chronic obstructive pulmonary disease) Emphysema, unspecified GERD (gastroesophageal reflux disease) Hypertension Surgical History Hx of colonoscopy H/O rotator cuff surgery Family History Mother Hyperlipidemia Social History Smoking and tobacco/nicotine status: current every day tobacco/nicotine user (1 PPD) cigarettes Alcohol intake: never Substance/Drug Use: never Lives independently: Yes Marital status: / service: Yes status: Retired Current occupational status: retired Do you think of yourself as: Straight/Heterosexual Current gender identity: Male Physical Exam 2 Const: COMMON NORMALS: no acute distress, average body habitus, patient oriented x3, no limitations, healthy appearing, alert and well nourished Neck/C-Spine: COMMON NORMALS: no JVD Chest: COMMONS NORMALS: normal inspection of the chest and normal palpation of entire chest wall Resp: COMMON NORMALS: normal respiratory effort, No retractions, No use of accessory muscles and clear to auscultation bilaterally AUSCULTATION: clear to auscultation bilaterally Cardio: COMMON NORMALS: no JVD, regular rate, regular rhythm, S1 normal heart sound present, S2 normal heart sound present, No gallops present (Cardio), No clicks present (Cardio), No murmurs present (Cardio) and No rub (Cardio) R ATE: regular rate RHYTHM: regular rhythm HEART SOUNDS: S1 normal heart sound present and S2 normal heart sound present GI: COMMON NORMALS: Normal to inspection, nondistended, normoactive bowel sounds present, Soft to palpation, non-tender, No hepatosplenomegaly present and no masses PALPATION: Yes Soft to palpation and Yes No hepatosplenomegaly present : OTHER: Spontaneous reduction of right inguinal hernia with drastically reduced pain. Neuro: COMMON NORMALS: patient oriented x3 SENSORIUM/ORIENTATION: Yes alert Course 2 Vital Signs: Vital signs: Vital Signs Temperature 98.5 F 11/19/24 18:45 Pulse Rate 77 11/19/24 18:45 Respiratory Rate 17 11/19/24 18:45 Blood Pressure 146/80 11/19/24 18:45 Pulse Oximetry 96 11/19/24 18:45 Oxygen Delivery Me thod Room Air 11/19/24 18:45 MDM - Male Medical Decision Making Patient be discharged home to follow-up with Dr. Jiménez. He was instructed to come back if this happens again. Medical Records I reviewed the patient's medical records. Lab Data I reviewed the patient's lab results. 11/19/24 18:55 11/19/24 18:55 Laboratory Results WBC 8.61 10^3/uL (3.29-11.43) 11/19/24 18:55 RBC 4.64 10^6/uL (3.85-5.65) 11/19/24 18:55 Hgb 14.80 g/dL (11.27-16.99) 11/19/24 18:55 Hct 43.2 % (37-53) 11/19/24 18:55 MCV 93.1 fl (82-101) 11/19/24 18:55 MCH 31.9 pg (27-33) 11/19/24 18:55 MCHC 34.3 g/dL (30-55) 11/19/24 18:55 RDW 12.0 % (12.1-15.1) L 11/19/24 18:55 Plt Count 213 10^3/cmm (157-399) 11/19/24 18:55 MPV 9.1 fL (7.4-10.4) 11/19/24 18:55 Neut % (Auto) 56.1 % 11/19/24 18:55 Lymph % (Auto) 31.4 % 11/19/24 18:55 [place] % (Auto) 6.6 % 11/19/24 18:55 Eos % (Auto) 4.8 % 11/19/24 18:55 Baso % (Auto) 0.9 % 11/19/24 18:55 Neut # (Auto) 4.83 10^3/uL (1.8-7.7) 11/19/24 18:55 Lymph # (Auto) 2.7 10^3/uL (0.8-4.8) 11/19/24 18:55 [place] # (Auto) 0.6 10^3/uL (0.2-0.9) 11/19/24 18:55 Eos # (Auto) 0.4 10^3/uL (0.0-0.8) 11/19/24 18:55 Baso # (Auto) 0.1 10^3/uL (0.0-0.1) 11/19/24 18:55 Nucleated RBC % (auto) 0 % 11/19/24 18:55 Nucleated RBCs # 0.0 /100WBC 11/19/24 18:55 Sodium 139 mmol/L (136-145) 11/19/24 18:55 Potassium 4.1 mmol/L (3.5-5.1) 11/19/24 18:55 Chloride 107 mmol/L (98-107) 11/19/24 18:55 Carbon Dioxide 24 mmol/L (22-29) 11/19/24 18:55 Anion Gap 12.1 (5-19) 11/19/24 18:55 BUN 10 mg/dL (6-20) 11/19/24 18:55 Creatinine 0.6 mg/dL (0.7-1.2) L 11/19/24 18:55 GFR Calculation 138.4 mL/min (90-130) H 11/19/24 18:55 Glucose 93 mg/dL (65-115) 11/19/24 18:55 Calculated Osmolality 287 mOsm/kg (285-295) 11/19/24 18:55 Calcium 8.8 mg/dL (8.5-10.5) 11/19/24 18:55 Total Bilirubin 0.2 mg/dL (0.15-1.2) 11/19/24 18:55 AST 20 U/L (0-40) 11/19/24 18:55 ALT 20 U/L (0-41) 11/19/24 18:55 Alkaline Phosphatase 82 U/L (40-130) 11/19/24 18:55 Total Protein 6.5 g/dL (6.6-8.7) L 11/19/24 18:55 Albumin 3.7 g/dL (3.5-5.2) 11/19/24 18:55 Globulin 2.8 g/dL (1.3-4.6) 11/19/24 18:55 Lipase 45 U/L (13-60) 11/19/24 18:55 No radiology studies performed this visit Discharge Plan Discharge Patient Disposition: Home Clinical Impression: Hernia, inguinal, right Condition: Stable Prescriptions: No Action (DME) ASO to the Right See Rx Instructions .ROUTE .MEDSUPPLY Qty: 1 0RF Rx Instructions: As directed albuterol sulfate [Ventolin HFA] 90 mcg/actuation HFA aerosol inhaler 1 inh inhalation QID Qty: 8.5 0RF budesonide-formoterol [Breyna] 160-4.5 mcg/actuation HFA aerosol inhaler 1 puff INHALATION TID fluoxetine 20 mg Capsule 40 mg PO DAILY 30 Days Qty: 60 1RF trazodone 50 mg Tablet 50 mg PO BEDTIME PRN (Reason: Sleep) 30 Days Qty: 30 1RF hydroxyzine pamoate 25 mg Capsule 50 mg PO Q6H PRN (Reason: Anxiety) 30 Days Qty: 120 1RF roflumilast 500 mcg Tablet 500 mcg PO DAILY 30 Days Qty: 30 1RF olanzapine 5 mg Tablet,Disintegrating 5 mg PO DAILY PRN (Reason: Agitation/Psychosis) 30 Days Qty: 30 1RF gabapentin 400 mg capsule 400 mg PO TID 30 Days Qty: 90 1RF lisinopril 30 mg tablet 30 mg PO DAILY 90 Days Qty: 90 0RF Rx Instructions: Dosage change metoprolol succinate 25 mg tablet extended release 24 hr 25 mg PO DAILY 30 Days Qty: 30 1RF Discharge Orders: Discharge ED (Routine); Ordered 11/19/24 Ordered By: Pb Hui Referrals: Sheldon Banerjee DO [Primary Care Provider] - 1 week Patient Instructions: Inguinal Hernia (ED) Activity Restrictions/Additional Instructions: Your inguinal hernia spontaneously reduced itself. You are at risk for this to worsen again and become a surgical emergency. If you cannot reduce it or the pain is unbearable please feel free to return to the ER for further evaluation treatment. Otherwise please keep your appointment with Dr. Jiménez for surgical revision. Coding Level of Care Code ED Food Equipment Service Technician for Hany Gaytan
== END 2024-11-19 20:34 | disposition home or self-care (01) ==
PROVIDERS: Emergency Medicine; Emergency Provider Emergency Medicine; PCP Family Medicine
DX: K40.90 Unilateral inguinal hernia, without obstruction or gangrene, not specified as recurrent (principal); F17.210 Nicotine dependence, cigarettes, uncomplicated; I10 Essential (primary) hypertension; J44.9 Chronic obstructive pulmonary disease, unspecified; E78.5 Hyperlipidemia, unspecified
CPT/HCPCS: 80053; 83690; 85025; 99283

== ENCOUNTER 2024-11-26 09:03 | Day surgery (SDC) | payer MEDICARE, SELFPAY ==
[2024-11-26] VITALS (10 sets, daily range): BP systolic 107–157; BP diastolic 70–88; PULSE 58–90; RESP 15–17; TEMP 36.1–36.6; O2SAT 92–100; BMI 23.6
[2024-11-26] MEDS: sodium chloride 0.9% 1,000 ML 30 ML IV (10:02)
--- NOTE | 2024-11-26 10:05 | W.PM.OPSUD ---
Surgery/Procedure H&P Update DATE OF PROCEDURE: November 26, 2024 DATE H&P PERFORMED: 11/04/24 H&P UPDATE INFORMATION: I have reviewed H&P completed within last 30 days, I have examined patient prior to procedure and No changes to prior documentation PLANNED PROCEDURE: Operation Date: 11/26/24 11:00 Proposed Procedures p Laparoscopic Inguinal Hernia Repair with mesh [id number](Bilateral) - Dominick Jiménez DO
[2024-11-26] MEDS: ceFAZolin 2,000 mg SDV 2000 MG IVP (10:54)
[2024-11-26] MEDS: lidocaine-epi 2% PF 1:200,000 20 mL SDV XX (11:22)
[2024-11-26] MEDS: tranexamic acid 1,000 mg/10mL SDV 1000 MG IV ×2 (11:27→12:27)
--- NOTE | 2024-11-26 12:20 | PM.OP ---
Operative Report Date of procedure: November 26, 2024 Surgeon: Dominick Jiménez DO Procedure: Pre-op diagnosis: Bilateral inguinal hernias Post-op diagnosis: Bilateral indirect inguinal hernias Procedure done: Laparoscopic (TEPP) repair of bilateral inguinal hernias with mesh Implants: Left and right extra-large 3D max Bard mesh is Specimens removed/disposition: None Surgeon: Dominick Jiménez DO Anesthesia: General and Local Estimated blood loss (mL): 5 Complications: None apparent Brief History: This is a very pleasant 59-year-old gentleman who presented my office with bilateral inguinal hernias. Laparoscopic repair with mesh was indicated. The risk and benefits were explained and documented. Procedure: Patient was wheeled into the operative room and placed on the OR table in a supine position. Abdomen was inspected prepped and draped in usual sterile fashion. Time-out was performed and all present were in agreement. A 15 blade scalpel was used to make 1.2 centimeter incision infraumbilically. Combination of sharp and blunt dissection was performed down to the anterior rectus sheath which was opened sharply. The dissecting balloon was then inserted into the space of Retzius and blown up. We put the camera into the port and identified that we were in the correct space. I then placed 2 5 millimeter trocars suprapubically in the midline. I then used endokitners to bluntly dissect in the space of Retzius out laterally. An indirect inguinal hernia was identified on the right. Blunt dissection was performed to dissect down the hernia sac until the vas deferens dove medially. An extra-large 3D max Bard right inguinal mesh was then placed into the space of Retzius. The mesh was unrolled and tacked once medially at the pubic bone. The mesh laid out nicely over the spermatic cord. An indirect inguinal hernia was identified on the left. Blunt dissection was performed to dissect down the hernia sac until the vas deferens dove medially. An extra-large 3D max Bard left inguinal mesh was then placed into the space of Retzius. The mesh was unrolled and tacked once medially at the pubic bone. The mesh laid out nicely over the spermatic cord. Hernia sacs were held underneath the meshes as the insufflation was released. Incisions were closed with 4 O Vicryl in a subcuticular interrupted fashion. Skin glue was applied. Patient tolerated the procedure well.
[2024-11-26] MEDS: HYDROcodone-acetaminophen 7.5-325 mg Tablet 1 TAB PO (13:07)
[2024-11-26] MEDS: fentaNYL 50 mcg/mL INJ 2mL IVP (13:48)
[2024-11-26] MEDS: ondansetron 2 mg/ML SDV 2 mL 4 MG IVP (13:51)
--- NOTE | 2024-11-26 15:00 | ANE.PACU2 ---
Inpatient post-anesthesia follow up: Airway intact: Yes Vital signs: Temperature 97.8 F Pulse Rate 76 Respiratory Rate 16 Blood Pressure 139/80 Pulse Oximetry 98 Oxygen Delivery Me thod Room Air Oxygen Flow Rate Fraction of Inspir ed Oxygen Hydration adequate: Yes Nausea and vomiting: No Pain level: 1 Mental status: Baseline
== END 2024-11-26 15:00 | disposition home or self-care (01) ==
PROVIDERS: PCP Family Medicine; Visit Provider Surgery
PROC: (CPT 49650; principal; 2024-11-26 10:50)
DX: K40.20 Bilateral inguinal hernia, without obstruction or gangrene, not specified as recurrent (principal); I10 Essential (primary) hypertension; J44.9 Chronic obstructive pulmonary disease, unspecified; K21.9 Gastro-esophageal reflux disease without esophagitis
CPT/HCPCS: 49505; 51702; C1781; J0690; J1100; J2250; J2405; J2704; J3010; J3490; J7030

== ENCOUNTER → 2024-12-09 08:41 | Outpatient (BNVA) | payer MEDICARE, SELFPAY | PROVIDERS: PCP Family Medicine; Visit Provider Surgery | DX: Z98.890 Other specified postprocedural states (principal); Z87.19 Personal history of other diseases of the digestive system; K40.20 Bilateral inguinal hernia, without obstruction or gangrene, not specified as recurrent | CPT/HCPCS: 99024 ==

== ENCOUNTER 2025-05-19 02:48 | Inpatient (IN) | payer MEDICARE, SELFPAY ==
--- OUTSIDE RECORDS SUMMARY | 2016-04-21 06:03 | XMS_ITS | Continuity of Care Document ---
Author Organization [facility] Address [address] [place] [id number] Phone Care Team Providers Care Fruit Checker Name Role Phone Unavailable Unavailable Unavailable Allergies, Adverse Reactions, Alerts Substance Reaction Status Criticality No Known Allergies Active No Inform ation Medications Medication Instructions Dosage Effective Dates (start - stop) Status Comments sertraline 50 mg tablet take 1 tablet by oral route every day 50 MG - Active Abilify 10 mg tablet take 1 tablet by oral route every day 10 MG - Active Please fill now. This client has not had this medication in several months. hydroxyzine pamoate 50 mg capsule take 1 capsule by ORAL route 3 times daily prn for anxiety - Active buspirone 10 mg tablet take 1 tablet by oral route 2 times every day 10 MG - Active ranitidine 150 mg tablet - Active Tricor 48 mg tablet take 1 tablet (48MG) by oral route every day 48 MG - Active atenolol 25 mg tablet take 1 tablet (25MG) by oral route every day 25 MG - Active gabapentin 300 mg capsule take 1 capsule (300MG) by ORAL route 2 times every day 300 MG - Active Procedures Procedure Date OFFICE/OUTPATIENT VISIT, EST OFFICE/OUTPATIENT VISIT, EST OFFICE/OUTPATIENT VISIT, EST OFFICE/OUTPATIENT VISIT, EST OFFICE/OUTPATIENT VISIT, EST Advance Directives Directive Yes / No Effective Date File Name No Information Encounters Encounter Description Practice Location Reason(s) For Visit Diagnoses Date Provider Providers Copied on Encounter [facility], [address] [place] [address], [address], [place] tel:[phone] *[facility] Urgent Care No Information 6 No Information OFFICE/OUTPA TIENT VISIT, [facility], [address] [place], [address], [place] tel:[phone] [facility] Bipolar affective, mixed, severe 4 No Information OFFICE/OUTPA TIENT VISIT, [facility], [address] [place], [address], [place] tel:[phone] [facility] Bipolar affective, mixed, severe 4 No Information OFFICE/OUTPA TIENT VISIT, [facility], [address] [place], [address], [place] tel:[phone] [facility] depression (chief complaint) No Information 3 No Information OFFICE/OUTPA TIENT VISIT, [facility], [address] [place], [address], [place] tel:[phone] [facility] depression (chief complaint) No Information 3 No Information OFFICE/OUTPA TIENT VISIT, [facility], [address] [place], [address], [place] tel:[phone] [facility] depression (chief complaint) No Information 3 No Information [facility], [address] [place], [address], [place] tel:[phone] [facility] No Information 2 Hilda Gillespie. [address] [place], [address], [place]. tel:[phone] Family History Family Member Type Diagnosis Age At Onset No Information Payers Payer name Insurance type Covered republican ID Authoriza tion(s) No Information Social History Type Description Quantity Date Captured Comments Alcohol Use Details Unknown Caffeine Use Details Unknown Tobacco Use Status Smoking Status No Information Sex Male Chief Complaint And Reason For Visit No Information Reason For Referral Reason For Referral No Information Plan Of Treatment Date Type Action Status Future Order: Lab Order CBC W/ A UTO DIFF ([id number]), Ordered on: Ordered Future Order: Lab Order COMPREHE NSIVE METABOLIC PANEL ([id number]), Ordered on: Ordered Future Order: Lab Order THYROID STIMULATING HORMONE ([id number]), Ordered on: Ordered History Of Present Illness Encounter Date Complaint History Of Prese nt Illness No Information Functional Status Date Functional Assessmen t No Information Instructions Date Instruction Additional Infor mation Go to ER if for suicidal/homicid al ideation Call office if symptoms worsen Reviewed medications Consider additional medications Reviewed medications Go to ER if for suicidal/homicid al ideation Call office if symptoms worsen Consider additional medications Go to ER if for suicidal/homicid al ideation Call office if symptoms worsen Reviewed medications Consider additional medications Dietary counseling Related to Ov erweight Assessments Type Assessment Date No Information Patient Care Teams Name Effective Dates (start - stop) Status Members No Information
[2025-05-19] VITALS (8 sets, daily range): BP systolic 93–169; BP diastolic 56–84; PULSE 58–100; RESP 16–18; TEMP 36.3–36.8; O2SAT 92–99; BMI 25.8
--- NOTE | 2025-05-19 03:07 | XRR_ITS ---
PROCEDURE INFORMATION: Exam: XR Chest Exam date and time: 05/19/2025 3:24 AM Age: 60 years old Clinical indication: Shortness of breath; Prior surgery; Surgery date: 6+ months; Surgery type: Rotator cuff; C/O SOB. History of copd. TECHNIQUE: Imaging protocol: Radiologic exam of the chest. Views: 1 view. COMPARISON: CR XR chest 1V portable [id number] 10/13/2024 6:03 PM FINDINGS: Lungs: Unremarkable. No consolidation. Pleural spaces: Unremarkable. No pleural effusion. No pneumothorax. Heart/Mediastinum: Unremarkable. No cardiomegaly. Bones/joints: Unremarkable. XR/XR chest 1V portable [id number] IMPRESSION: No acute findings.
--- NOTE | 2025-05-19 03:11 | ECG_ITS ---
[facility] Test Date: 2025-05-19 Pat Name: Lucian Banuelos Department: Room: Gender: Male Assisted Living Associate: : 1965 Requested By: Travis Patel Order Number: [id number] Jasmin MD: Gi Blancas M.D. Measurements Intervals [place] Rate: 68 P: 64 [place]: 152 QRS: 59 QRSD: 104 T: 41 QT: 417 QTc: 446 Interpretive Statements SINUS RHYTHM SEPTAL MYOCARDIAL INFARCTION , PROBABLY OLD [40+ ms Q WAVE IN V1/V2] Compared to ECG 10/13/2024 18:02:34 No significant changes Electronically Signed On 05-20-2025 09:57:44 CDT by Gi Blancas M.D. [email or web address]
[2025-05-19 03:13] LABS: Glucose Urine UA Negative (Normal); Nitrate Urine Negative (Negative); Specific Gravity, Urine 1.003 (1.005-1.030)
[2025-05-19 03:18] LABS: Add Urine Microscopic? YES
[2025-05-19 03:20] LABS: PCP Screen Urine Negative (Negative)
[2025-05-19 03:23] LABS: Hematocrit 46.1 % (37-53); Hemoglobin 15.80 g/dL (11.27-16.99); Mean Corpuscular HGB Conc 34.3 g/dL (30-55); Mean Corpuscular Hemoglobin 30.1 pg (27-33); Mean Corpuscular Volume 87.8 fl (82-101); Nucleated Red Blood Cells % 0 %; Platelet Count 229 10^3/cmm (157-399); Red Blood Count 5.25 10^6/uL (3.85-5.65); White Blood Count 10.34 10^3/uL (3.29-11.43)
[2025-05-19 03:42] LABS: Alanine Aminotransferase 11 U/L (0-41); Albumin Level 3.9 g/dL (3.5-5.2); Alcohol Level 239 mg/dL (0-10); Alkaline Phosphatase 103 U/L (40-130); Anion Gap 18.2 (5-19); Aspartate Amino Transferase 21 U/L (0-40); Blood Urea Nitrogen 5 mg/dL (6-20); Calcium 8.5 mg/dL (8.5-10.5); Carbon Dioxide 20 mmol/L (22-29); Chloride 104 mmol/L (98-107); Creatinine Clr Calc Pharmacy 161.7399; Globulin 3.2 g/dL (1.3-4.6); Glucose 118 mg/dL (65-115); Osmolality Calculated 286 mOsm/kg (285-295); Potassium 3.2 mmol/L (3.5-5.1); Sodium 139 mmol/L (136-145); Total Protein 7.1 g/dL (6.6-8.7)
--- NOTE | 2025-05-19 03:42 | W.ED.PSYCHS ---
HPI - Psych General: Chief Complaint: Psychiatric Symptoms Stated Complaint: MHE Time Seen by Provider: 05/19/25 03:01 History of Present Illness: 60-year-old male patient presenting with suicidal ideations. He had been drinking earlier in the evening. Police had been called. He complained at that point of wanting to walk into traffic. He seemed improved transiently, but the patient himself called 911 later, again stating that he wanted to walk into traffic. He has had suicidal ideations in the past as well. He complains of some chest pressure, and trouble breathing as he has COPD. He has had a cough with some sputum production. No fever. Related Data Home Medications ?Medication ?Instructions ?Recorded ?Confirmed budesonide-formoterol HFA 160 1 puff inhalation TID 10/14/24 05/19/25 mcg-4.5 mcg/actuation aerosol inhaler (Breyna) albuterol sulfate 90 mcg/actuation See Rx Instructions .Route .COMPLEX 05/19/25 05/19/25 aerosol inhaler (Ventolin HFA) atorvastatin 40 mg tablet 40 mg PO QPM 05/19/25 05/19/25 fluticasone propionate 50 2 spray intranasal DAILY 05/19/25 05/19/25 mcg/actuation nasal spray,suspension ipratropium bromide 17 2 puff inhalation QID 05/19/25 05/19/25 mcg/actuation HFA aerosol inhaler (Atrovent HFA) nitroglycerin 0.4 mg sublingual 0.4 mg sublingual Q5M PRN heart 05/19/25 05/19/25 tablet pain Previous Rx's ?Medication ?Instructions ?Recorded ASO to the Right #1 ea 05/25/21 roflumilast 500 mcg tablet 500 mcg PO DAILY 30 days #30 tabs 10/18/24 buspirone 10 mg tablet 10 mg PO BID PRN Anxiety 30 days 05/21/25 #30 tabs fluoxetine 20 mg capsule (Prozac) 20 mg PO DAILY 30 days #30 caps 05/21/25 gabapentin 400 mg capsule 400 mg PO TID 30 days #90 caps 05/21/25 hydroxyzine pamoate 25 mg capsule 50 mg (2 x 25 mg) PO Q6H PRN 05/21/25 Anxiety 30 days #120 caps lisinopril 20 mg tablet 20 mg PO DAILY 30 days #30 tabs 05/21/25 metoprolol succinate 25 mg 25 mg PO DAILY 330 days #30 tabs 05/21/25 tablet,extended release 24 hr olanzapine 5 mg disintegrating 5 mg PO DAILY PRN 05/21/25 tablet Agitation/Psychosis 30 days #30 tabs thiamine mononitrate (vit B1) 100 100 mg PO DAILY 30 days #30 tabs 05/21/25 mg tablet (Vitamin B-1 (mononitrate)) trazodone 150 mg tablet 150 mg PO BEDTIME 30 days #30 tabs 05/21/25 Allergies Allergy/AdvReac Type Severity Reaction Status Date / Time No Known Allergies Allergy Verified 12/09/24 08:50 PFSH ED PFSH: Medical History Psychiatric care DDD (degenerative disc disease) PTSD (post-traumatic stress disorder) Depression Essential (primary) hypertension Tobacco abuse COPD (chronic obstructive pulmonary disease) Emphysema, unspecified GERD (gastroesophageal reflux disease) Hypertension Surgical History Hx of hernia repair Dr Jiménez 11/26/24 -Laparoscopic (TEPP) repair of bilateral inguinal hernias with mesh Implants: Left and right extra-large 3D max Bard mesh is Hx of colonoscopy H/O rotator cuff surgery Family History Mother Hyperlipidemia Social History Smoking and tobacco/nicotine status: current every day tobacco/nicotine user (1 PPD) cigarettes Alcohol intake: never Substance/Drug Use: never Lives independently: Yes Marital status: / service: Yes status: Retired Current occupational status: retired Do you think of yourself as: Straight/Heterosexual Current gender identity: Male Physical Exam Const: COMMON NORMALS: no acute distress GENERAL APPEARANCE: cooperative; not ill appearing and not frail appearing HENMT: COMMON NORMALS: normocephalic, atraumatic and Normal external nose present HEAD & SCALP: normocephalic and atraumatic FACE & SINUS: normal facial exam and face symmetric NOSE: Normal external nose present Eye: COMMON NORMALS: Equal, round and reactive pupils present and EOMs intact bilaterally PUPIL: Yes Equal, round and reactive pupils present Neck/C-Spine: GENERAL: Yes trachea midline Chest: CHEST: Yes Symmetrical chest wall rise Resp: COMMON NORMALS: normal respiratory effort, No retractions, No use of accessory muscles and clear to auscultation bilaterally AUSCULTATION: clear to auscultation bilaterally Cardio: COMMON NORMALS: regular rate and regular rhythm RATE: regular rate RHYTHM: regular rhythm GI: COMMON NORMALS: Normal to inspection, nondistended, normoactive bowel sounds present Extremity: COMMON NORMALS: no pedal edema Neuro: LISA COMA SCALE: document GCS findings Lisa coma scale eye opening: Spontaneous [place] coma scale verbal response: Orientated [place] coma scale motor response: Obey commands Lisa coma scale total score: 15 SENSORY EXAM: Yes extremities (intact) Psych: COMMON NORMALS: speech normal SPEECH: Yes normal speech Skin: COMMON NORMALS: no rashes or lesions noted GENERAL SKIN EXAM: no rashes or lesions noted Course Vital Signs: Vital signs: Vital Signs Temperature 98.3 F 05/21/25 16:22 Pulse Rate 74 05/21/25 16:22 Respiratory Rate 16 05/21/25 16:22 Blood Pressure 140/86 05/21/25 16:22 Pulse Oximetry 98 05/21/25 16:22 Oxygen Delivery Me thod Room Air 05/21/25 16:00 MDM - Psych Medical Decision Making Patient is given a breathing treatment here with improvement in his breathing symptoms. His chest x-ray is clear. He is suicidal. He will require psychiatric evaluation. Potassium is 3.2 and is repleted. He does have an elevated alcohol level, but is completely coherent, ambulatory, conversant, and nonbelligerent. Lab Data 05/19/25 03:18 05/19/25 03:18 Radiology Impressions Chest X-Ray 05/19/25 03:07 IMPRESSION: No acute findings. Laboratory Results WBC 10.34 10^3/uL (3.29-11.43) 05/19/25 03:18 RBC 5.25 10^6/uL (3.85-5.65) 05/19/25 03:18 Hgb 15.80 g/dL (11.27-16.99) 05/19/25 03:18 Hct 46.1 % (37-53) 05/19/25 03:18 MCV 87.8 fl (82-101) 05/19/25 03:18 MCH 30.1 pg (27-33) 05/19/25 03:18 MCHC 34.3 g/dL (30-55) 05/19/25 03:18 RDW 14.0 % (12.1-15.1) 05/19/25 03:18 Plt Count 229 10^3/cmm (157-399) 05/19/25 03:18 MPV 9.0 fL (7.4-10.4) 05/19/25 03:18 Neut % (Auto) 59.5 % 05/19/25 03:18 Lymph % (Auto) 30.9 % 05/19/25 03:18 Angelina % (Auto) 4.2 % 05/19/25 03:18 Eos % (Auto) 3.8 % 05/19/25 03:18 Baso % (Auto) 1.1 % 05/19/25 03:18 Neut # (Auto) 6.17 10^3/uL (1.8-7.7) 05/19/25 03:18 Lymph # (Auto) 3.2 10^3/uL (0.8-4.8) 05/19/25 03:18 Angelina # (Auto) 0.4 10^3/uL (0.2-0.9) 05/19/25 03:18 Eos # (Auto) 0.4 10^3/uL (0.0-0.8) 05/19/25 03:18 Baso # (Auto) 0.1 10^3/uL (0.0-0.1) 05/19/25 03:18 Nucleated RBC % (auto) 0 % 05/19/25 03:18 Nucleated RBCs # 0.0 /100WBC 05/19/25 03:18 Sodium 139 mmol/L (136-145) 05/19/25 03:18 Potassium 3.2 mmol/L (3.5-5.1) L 05/19/25 03:18 Chloride 104 mmol/L (98-107) 05/19/25 03:18 Carbon Dioxide 20 mmol/L (22-29) L 05/19/25 03:18 Anion Gap 18.2 (5-19) 05/19/25 03:18 BUN 5 mg/dL (6-20) L 05/19/25 03:18 Creatinine 0.5 mg/dL (0.7-1.2) L 05/19/25 03:18 GFR Calculation 170.2 mL/min (90-130) H 05/19/25 03:18 Glucose 118 mg/dL (65-115) H 05/19/25 03:18 Calculated Osmolality 286 mOsm/kg (285-295) 05/19/25 03:18 Calcium 8.5 mg/dL (8.5-10.5) 05/19/25 03:18 Total Bilirubin 0.3 mg/dL (0.15-1.2) 05/19/25 03:18 AST 21 U/L (0-40) 05/19/25 03:18 ALT 11 U/L (0-41) 05/19/25 03:18 Alkaline Phosphatase 103 U/L (40-130) 05/19/25 03:18 Total Protein 7.1 g/dL (6.6-8.7) 05/19/25 03:18 Albumin 3.9 g/dL (3.5-5.2) 05/19/25 03:18 Globulin 3.2 g/dL (1.3-4.6) 05/19/25 03:18 Urine Color Yellow (Yellow) 05/19/25 03:01 Urine Appearance Clear (CLEAR) 05/19/25 03:01 Urine pH 5.5 (5-7) 05/19/25 03:01 Ur Specific Dowell 1.003 (1.005-1.030) L 05/19/25 03:01 Urine Protein Negative (Negative) 05/19/25 03:01 Urine Glucose (UA) Negative (Normal) 05/19/25 03:01 Urine Ketones Negative (Negative) 05/19/25 03:01 Urine Blood 1+ (Negative) A 05/19/25 03:01 Urine Nitrate Negative (Negative) 05/19/25 03:01 Urine Bilirubin Negative (Negative) 05/19/25 03:01 Urine Urobilinogen 0.2 mg/dL (Negative) 05/19/25 03:01 Ur Leukocyte Esterase Negative (Negative) 05/19/25 03:01 Urine RBC 0-2 /hpf (0-2) 05/19/25 03:01 Urine WBC 0-5 /hpf (0-5) 05/19/25 03:01 Ur Squamous Epith Cells 0-5 /hpf (0-5) 05/19/25 03:01 Amorphous Sediment Not Reportable 05/19/25 03:01 Urine Bacteria None seen /hpf (NONE) 05/19/25 03:01 Hyaline Casts 0-4 /lpf H 05/19/25 03:01 Salicylates < 0.3 mg/dL (3-10) L 05/19/25 03:18 Urine Opiates Screen Negative ng/mL (Negative) 05/19/25 03:01 Acetaminophen < 5.0 ug/mL (10-30) L 05/19/25 03:18 Ur Barbiturates Screen Negative ng/mL (Negative) 05/19/25 03:01 Ur Phencyclidine Scrn Negative ng/mL (Negative) 05/19/25 03:01 Ur Amphetamines Screen Negative ng/mL (Negative) 05/19/25 03:01 U Benzodiazepines Scrn Negative ng/mL (Negative) 05/19/25 03:01 Urine Cocaine Screen Negative ng/mL (Negative) 05/19/25 03:01 U Marijuana (THC) Screen Positive ng/mL (Negative) H 05/19/25 03:01 Ethyl Alcohol 239 mg/dL (0-10) H 05/19/25 03:18 No radiology studies performed this visit Discharge Plan Discharge Patient Disposition: Admitted As Inpatient Admit Provider: Moy Young Clinical Impression: Suicidal ideation, Major depressive disorder, recurrent, PTSD (post-traumatic stress disorder) Condition: Stable Discharge Diet: Regular Discharge Activity: Resume usual activity Coding Level of Care Code ED [employer] for Hany Gaytan
[2025-05-19 03:43] LABS: Acetaminophen < 5.0 ug/mL (10-30); Salicylate < 0.3 mg/dL (3-10)
--- NOTE | 2025-05-19 06:23 | PC.NURSE ---
96 Pt served with copy of 96 by this RN and security. Pt responded appropriately but kept eyes closed and turned away. Pt stated he had no questions.
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
[2025-05-20 04:00] VITALS: BP 146/84; PULSE 79; RESP 16; TEMP 36.8; O2SAT 95
[2025-05-20 07:13] VITALS: BP 142/80; PULSE 66; RESP 16; TEMP 36.5; O2SAT 96
[2025-05-20] MEDS: multivitamin therapeutic Tablet 1 TAB PO (07:53)
[2025-05-20] MEDS: fluticasone nasal spray 16gm Btl 2 SPRAY INTRANASAL (07:54)
[2025-05-20] MEDS: metoprolol succinate ER (24 HR) 25 mg Tablet PO (07:54)
[2025-05-20 08:39] VITALS: PULSE 105; RESP 16; O2SAT 96
[2025-05-20] MEDS: fixodent 39 gm Tube 1 APPLIC DENTAL (08:44)
[2025-05-20 12:00] VITALS: BP 112/63; PULSE 58; RESP 16; TEMP 36.8; O2SAT 95
--- NOTE | 2025-05-20 13:38 | P.NPUPN_ITS ---
Subjective NPU 2 Subjective: Patient presented today reporting that things had been going really well and that he met up with his twin and that is when things got problematic. He fell into bad habits in the past behaviors and began drinking again which led to things going south with him being kicked out of where he was staying and and being back in the predicament that he is found himself in when he is used in the past. We discussed working with the social work team to make sure that he has some reasonable residential option and reengaging in sober living treatment to get back on track with the sobriety he had not been having for several months. He denied any side effects to the medication. Mental Status Exam 2 MSE Comments: This is a well-nourished well-developed white male in hospital scrubs with adequate grooming and eye contact. No abnormal movements except for resolving mild psychomotor retardation. He was mostly cooperative with exam in mild to moderate distress. Speech was more normal in rate and volume though slightly decreased. Mood described as a little better than the past 2 days, His affect was congruent and less subdued. Thought process was linear. Thought content: Patient denied current suicidal or homicidal ideation, there were no delusions reported or noted, he did not report auditory or visual hallucinations. Attention and concentration were intact and memory appeared mostly reliable but none were formally tested. He was alert and oriented x 3. Insight and judgment appeared limited, impulse control appears limited. Vitals/I&O/Wt Last Vital Signs Temp 98.3 F 05/20/25 12:00 Pulse 58 L 05/20/25 12:00 Resp 16 05/20/25 12:00 BP 112/63 05/20/25 12:00 Pulse Ox 95 05/20/25 12:00 O2 Del Method Room Air 05/20/25 12:00 Weight last 48 hrs Weight 77.111 kg Data NPU 05/19/25 03:18 05/19/25 03:18 A&P Assessment and plan 1. Suicidal ideation: 2. Major depressive disorder, recurrent: 3. AMBER (generalized anxiety disorder): Plan: Patient is a 60-year-old male with a history of depression anxiety and some alcohol and marijuana addiction. He was last admitted in October with significant mental health challenges, including major depression, bipolar disorder, and self-reported ADHD, as previously diagnosed. There is a history of psychotic episodes with homicidal and suicidal tendencies. Once again presented positive for alcohol and cannabis. The patient has also experienced paranoia and auditory hallucinations in the past. There is a noted history of multiple suicide attempts. 1.? Continue current medications and consider changes as indicated. 2. Engage? patient in individual ,milieu, and group therapy 3. ?TO-15 minute checks on the unit. 4.? Recommend sober living treatment at the highest level of care to which the patient is willing to commit. 5. Evaluate against the backdrop of the 96-hour hold. 6. Obtain collateral information. PDMP PDMP Reviewed: Not Reviewed Involuntary Hold Information 2 Hold Status: Legal Status: 96 Hour Hold Date/Time Hold Expires: 05/23/25 @0500 96 Hour Hold: 96 Hour Involuntary Admission: Yes Other Hold: Hold End Date: 10/22/24 Attestations NPU 2 Medical Necessity Statement*: Inpatient hospitalization is medically necessary and the clinically appropriate intervention at this time. We will monitor medications and make changes as indicated. The patient's likely length of stay 2-4 days. Coding Level of Care Code Acute Code for [facility] Fwd Diagnoses Suicidal ideation R45.851 Major depressive disorder, recurrent F33.9 AMBER (generalized anxiety disorder) F41.1
[2025-05-20 16:00] VITALS: BP 135/78; PULSE 88; RESP 16; TEMP 37; O2SAT 98
[2025-05-20 19:48] VITALS: BP 120/72; PULSE 69; RESP 16; TEMP 36.7; O2SAT 95
[2025-05-21] VITALS: RESP 16
[2025-05-21 04:00] VITALS: BP 125/72; PULSE 96; RESP 16; O2SAT 97
[2025-05-21 08:00] VITALS: BP 121/75; PULSE 77; RESP 16; TEMP 36.8; O2SAT 94
[2025-05-21] MEDS: multivitamin therapeutic Tablet 1 TAB PO (09:52)
[2025-05-21] MEDS: metoprolol succinate ER (24 HR) 25 mg Tablet PO (09:52)
[2025-05-21] MEDS: fluticasone nasal spray 16gm Btl 2 SPRAY INTRANASAL (09:54)
[2025-05-21 11:50] VITALS: BP 142/74; PULSE 74; RESP 16; TEMP 36.9; O2SAT 98
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
[2025-05-21 16:00] VITALS: BP 140/86; PULSE 74; RESP 16; TEMP 36.8; O2SAT 95
[2025-05-21 16:22] VITALS: BP 140/86; PULSE 74; RESP 16; TEMP 36.8; O2SAT 98
--- NOTE | 2025-05-21 16:37 | DCPLANNER ---
Imm was given to pt and rights explained and copy placed in file.
== END 2025-05-21 17:26 | disposition home or self-care (01) | DRG 885 ==
LOC: ER 05:45 → ER IP 06:04 → NP 15:29
PROVIDERS: Admitting Provider Psychiatry & Neurology Psychiatry; Emergency Provider Emergency Medicine; PCP Family Medicine; Visit Provider Psychiatry & Neurology Psychiatry
DX: F33.9 Major depressive disorder, recurrent, unspecified (principal); R45.851 Suicidal ideations; F41.1 Generalized anxiety disorder; J44.9 Chronic obstructive pulmonary disease, unspecified; Z79.51 Long term (current) use of inhaled steroids; Z79.891 Long term (current) use of opiate analgesic
CPT/HCPCS: 36415; 71045; 80053; 80306; 80307; 81001; 85025; 93005; 94640; 97150; 97165; 99285; J7611; J9999

== ENCOUNTER 2025-09-13 23:45 | Emergency (ER) | payer MEDICARE, SELFPAY ==
[2025-09-13 23:47] VITALS: BP 137/86; PULSE 72; RESP 17; TEMP 36.4; O2SAT 94; BMI 27.3
[2025-09-14] VITALS (8 sets, daily range): BP systolic 112–158; BP diastolic 57–94; PULSE 73–100; RESP 15–20; TEMP 36.1–36.4; O2SAT 91–96
--- NOTE | 2025-09-14 00:37 | XRR_ITS ---
PROCEDURE INFORMATION: Exam: XR Chest Exam date and time: 09/14/2025 12:37 AM Age: 60 years old Clinical indication: Screening exam; Other screening; Prior surgery; Surgery date: 6+ months; Surgery type: Rotator cuff; Medical clearance for psych transfer. History of copd. TECHNIQUE: Imaging protocol: Radiologic exam of the chest. Views: 1 view. COMPARISON: CR XR chest 1V portable [id number] 05/19/2025 3:24 AM FINDINGS: Lungs: Emphysematous lung disease. Hyperinflation. Negative for consolidation. Negative for mass. Pleural spaces: Unremarkable. No pleural effusion. No pneumothorax. Heart/Mediastinum: Unremarkable. No cardiomegaly. Bones/joints: Unremarkable. XR/XR chest 1V portable [id number] IMPRESSION: Negative for acute chest pathology.
[2025-09-14 01:05] LABS: Hematocrit 47.7 % (37-53); Hemoglobin 16.70 g/dL (11.27-16.99); Mean Corpuscular HGB Conc 35.0 g/dL (30-55); Mean Corpuscular Hemoglobin 31.5 pg (27-33); Mean Corpuscular Volume 90.0 fl (82-101); Nucleated Red Blood Cells % 0 %; Platelet Count 198 10^3/cmm (157-399); Red Blood Count 5.30 10^6/uL (3.85-5.65); White Blood Count 9.08 10^3/uL (3.29-11.43)
[2025-09-14 01:23] LABS: Acetaminophen < 5.0 ug/mL (10-30); Alanine Aminotransferase 80 U/L (0-41); Albumin Level 4.1 g/dL (3.5-5.2); Alcohol Level 202 mg/dL (0-10); Alkaline Phosphatase 100 U/L (40-130); Anion Gap 16.8 (5-19); Aspartate Amino Transferase 107 U/L (0-40); Blood Urea Nitrogen 7 mg/dL (6-20); Calcium 8.7 mg/dL (8.5-10.5); Carbon Dioxide 23 mmol/L (22-29); Chloride 105 mmol/L (98-107); Creatinine Clr Calc Pharmacy 165.8223; Globulin 2.8 g/dL (1.3-4.6); Glucose 89 mg/dL (65-115); Osmolality Calculated 289 mOsm/kg (285-295); Potassium 3.8 mmol/L (3.5-5.1); Salicylate < 0.3 mg/dL (3-10); Sodium 141 mmol/L (136-145); Total Protein 6.9 g/dL (6.6-8.7)
[2025-09-14 02:45] LABS: Coronavirus 229E,HKU1,NL63,OC4 Not Detected (NOT DETECT); Parainfluenza Virus Type 1 Not Detected (NOT DETECT); Parainfluenza Virus Type 2 Not Detected (NOT DETECT); Parainfluenza Virus Type 3 Not Detected (NOT DETECT); Parainfluenza Virus Type 4 Not Detected (NOT DETECT); SARS-COV-2 Not Detected (NOT DETECT)
--- NOTE | 2025-09-14 03:12 | W.ED.PSYCHS ---
HPI - Psych General: Chief Complaint: Psychiatric Symptoms Stated Complaint: psych Time Seen by Provider: 09/14/25 01:54 History of Present Illness: Patient is a 60-year-old male presenting with homicidal ideations toward his brother for the past two days due to domestic problems. He also reports suicidal thoughts but declined to provide a specific plan when asked. Patient reports living with his brother currently, describing the situation as real stressful and his brother as aggravating as hell. Patient states his brother wants to throw everything and is difficult to get along with. Per patient report, he was hospitalized for depression approximately one year ago, which coincided with the loss of his sister and increased alcohol consumption. The current domestic situation appears to be exacerbating his underlying depression. Related Data Home Medications ?Medication ?Instructions ?Recorded ?Confirmed budesonide-formoterol HFA 160 1 puff inhalation TID 10/14/24 05/19/25 mcg-4.5 mcg/actuation aerosol inhaler (Breyna) albuterol sulfate 90 mcg/actuation See Rx Instructions .Route .COMPLEX 05/19/25 05/19/25 aerosol inhaler (Ventolin HFA) atorvastatin 40 mg tablet 40 mg PO QPM 05/19/25 05/19/25 fluticasone propionate 50 2 spray intranasal DAILY 05/19/25 05/19/25 mcg/actuation nasal spray,suspension ipratropium bromide 17 2 puff inhalation QID 05/19/25 05/19/25 mcg/actuation HFA aerosol inhaler (Atrovent HFA) nitroglycerin 0.4 mg sublingual 0.4 mg sublingual Q5M PRN heart 05/19/25 05/19/25 tablet pain Previous Rx's ?Medication ?Instructions ?Recorded ASO to the Right #1 ea 05/25/21 roflumilast 500 mcg tablet 500 mcg PO DAILY 30 days #30 tabs 10/18/24 buspirone 10 mg tablet 10 mg PO BID PRN Anxiety 30 days 05/21/25 #30 tabs fluoxetine 20 mg capsule (Prozac) 20 mg PO DAILY 30 days #30 caps 05/21/25 gabapentin 400 mg capsule 400 mg PO TID 30 days #90 caps 05/21/25 hydroxyzine pamoate 25 mg capsule 50 mg (2 x 25 mg) PO Q6H PRN 05/21/25 Anxiety 30 days #120 caps lisinopril 20 mg tablet 20 mg PO DAILY 30 days #30 tabs 05/21/25 metoprolol succinate 25 mg 25 mg PO DAILY 330 days #30 tabs 05/21/25 tablet,extended release 24 hr olanzapine 5 mg disintegrating 5 mg PO DAILY PRN 05/21/25 tablet Agitation/Psychosis 30 days #30 tabs thiamine mononitrate (vit B1) 100 100 mg PO DAILY 30 days #30 tabs 05/21/25 mg tablet (Vitamin B-1 (mononitrate)) trazodone 150 mg tablet 150 mg PO BEDTIME 30 days #30 tabs 05/21/25 Allergies Allergy/AdvReac Type Severity Reaction Status Date / Time No Known Allergies Allergy Verified 12/09/24 08:50 PFS ED PFSH: Medical History (Updated 09/14/25 @ 05:55 by Travis Delarosa DO) Psychiatric care DDD (degenerative disc disease) PTSD (post-traumatic stress disorder) Depression Essential (primary) hypertension Tobacco abuse COPD (chronic obstructive pulmonary disease) Emphysema, unspecified GERD (gastroesophageal reflux disease) Hypertension Surgical History (Updated 05/22/25 @ 00:01 by MELVI Alcocer) Hx of hernia repair Dr Jiménez 11/26/24 -Laparoscopic (TEPP) repair of bilateral inguinal hernias with mesh Implants: Left and right extra-large 3D max Bard mesh is Hx of colonoscopy H/O rotator cuff surgery Family History Mother Hyperlipidemia Social History Smoking and tobacco/nicotine status: current every day tobacco/nicotine user (1 PPD) cigarettes Alcohol intake: never Substance/Drug Use: never Lives independently: Yes Marital status: / service: Yes status: Retired Current occupational status: retired Do you think of yourself as: Straight/Heterosexual Current gender identity: Male Physical Exam Const: COMMON NORMALS: no acute distress GENERAL APPEARANCE: cooperative; not ill appearing and not frail appearing HENMT: COMMON NORMALS: normocephalic, atraumatic and Normal external nose present HEAD & SCALP: normocephalic and atraumatic FACE & SINUS: normal facial exam and face symmetric NOSE: Normal external nose present Eye: COMMON NORMALS: Equal, round and reactive pupils present and EOMs intact bilaterally PUPIL: Yes Equal, round and reactive pupils present Neck/C-Spine: GENERAL: Yes trachea midline Chest: CHEST: Yes Symmetrical chest wall rise Resp: COMMON NORMALS: normal respiratory effort, No retractions, No use of accessory muscles and clear to auscultation bilaterally AUSCULTATION: clear to auscultation bilaterally Cardio: COMMON NORMALS: regular rate and regular rhythm RATE: regular rate RHYTHM: regular rhythm GI: COMMON NORMALS: Normal to inspection, nondistended, normoactive bowel sounds present Extremity: COMMON NORMALS: no pedal edema Neuro: LISA COMA SCALE: document GCS findings Lisa coma scale eye opening: Spontaneous Lisa coma scale verbal response: Orientated [place] coma scale motor response: Obey commands [place] coma scale total score: 15 SPEECH: abnormal speech Details: slurred (mildly) SENSORY EXAM: Yes extremities (intact) Psych: COMMON NORMALS: speech normal SPEECH: Yes normal speech Skin: COMMON NORMALS: no rashes or lesions noted GENERAL SKIN EXAM: no rashes or lesions noted Course Vital Signs: Vital signs: Vital Signs Temperature 96.9 F L 09/14/25 04:06 Pulse Rate 73 09/14/25 04:06 Respiratory Rate 15 09/14/25 04:06 Blood Pressure 112/82 09/14/25 04:06 Pulse Oximetry 95 09/14/25 04:06 Oxygen Delivery Me thod Room Air 09/14/25 04:06 MDM - Psych Medical Decision Making 60-year-old male who initially was homicidal towards his brother. He lives with his brother, and was having a difficult time with him at home. He also had made suicidal statements. His ethanol level is 202, but he is coherent at this point. He has been completely cooperative. CBC BMP are not remarkable. Respiratory panel reveals rhinovirus. Other laboratory not remarkable. Chest x-ray is negative. EKG is not remarkable. Medically, he is stable. We have no beds at our neuropsychiatric unit available currently. Will attempt to look for beds elsewhere. Lab Data 09/14/25 00:51 09/14/25 00:51 Radiology Impressions Chest X-Ray 09/14/25 00:37 IMPRESSION: Negative for acute chest pathology. Laboratory Results WBC 9.08 10^3/uL (3.29-11.43) 09/14/25 00:51 RBC 5.30 10^6/uL (3.85-5.65) 09/14/25 00:51 Hgb 16.70 g/dL (11.27-16.99) 09/14/25 00:51 Hct 47.7 % (37-53) 09/14/25 00:51 MCV 90.0 fl (82-101) 09/14/25 00:51 MCH 31.5 pg (27-33) 09/14/25 00: MCHC 35.0 g/dL (30-55) 09/14/25 00:51 RDW 12.9 % (12.1-15.1) 09/14/25 00:51 Plt Count 198 10^3/cmm (157-399) 09/14/25 00:51 MPV 9.4 fL (7.4-10.4) 09/14/25 00:51 Neut % (Auto) 58.4 % 09/14/25 00: Lymph % (Auto) 31.3 % 09/14/25 00:51 [place] % (Auto) 4.3 % 09/14/25 00:51 Eos % (Auto) 4.7 % 09/14/25 00:51 Baso % (Auto) 1.0 % 09/14/25 00:51 Neut # (Auto) 5.30 10^3/uL (1.8-7.7) 09/14/25 00:51 Lymph # (Auto) 2.8 10^3/uL (0.8-4.8) 09/14/25 00:51 [place] # (Auto) 0.4 10^3/uL (0.2-0.9) 09/14/25 00:51 Eos # (Auto) 0.4 10^3/uL (0.0-0.8) 09/14/25 00:51 Baso # (Auto) 0.1 10^3/uL (0.0-0.1) 09/14/25 00:51 Nucleated RBC % (auto) 0 % 09/14/25 00: Nucleated RBCs # 0.0 /100WBC 09/14/25 00:51 Sodium 141 mmol/L (136-145) 09/14/25 00:51 Potassium 3.8 mmol/L (3.5-5.1) 09/14/25 00:51 Chloride 105 mmol/L (98-107) 09/14/25 00:51 Carbon Dioxide 23 mmol/L (22-29) 09/14/25 00:51 Anion Gap 16.8 (5-19) 09/14/25 00:51 BUN 7 mg/dL (6-20) 09/14/25 00:51 Creatinine 0.5 mg/dL (0.7-1.2) L 09/14/25 00:51 GFR Calculation 170.2 mL/min (90-130) H 09/14/25 00:51 Glucose 89 mg/dL (65-115) 09/14/25 00:51 Calculated Osmolality 289 mOsm/kg (285-295) 09/14/25 00:51 Calcium 8.7 mg/dL (8.5-10.5) 09/14/25 00:51 Total Bilirubin 0.3 mg/dL (0.15-1.2) 09/14/25 00:51 AST 107 U/L (0-40) H 09/14/25 00:51 ALT 80 U/L (0-41) H 09/14/25 00:51 Alkaline Phosphatase 100 U/L (40-130) 09/14/25 00:51 Total Protein 6.9 g/dL (6.6-8.7) 09/14/25 00:51 Albumin 4.1 g/dL (3.5-5.2) 09/14/25 00:51 Globulin 2.8 g/dL (1.3-4.6) 09/14/25 00:51 Salicylates < 0.3 mg/dL (3-10) L 09/14/25 00:51 Acetaminophen < 5.0 ug/mL (10-30) L 09/14/25 00:51 Ethyl Alcohol 202 mg/dL (0-10) H 09/14/25 00:51 Adenovirus (PCR) Not detected (NOT DETECT) 09/14/25 00:49 C. pneumoniae DNA (PCR) Not detected (NOT DETECT) 09/14/25 00:49 Coronavirus 229E (PCR) Not detected (NOT DETECT) 09/14/25 00:49 Human Metapneumovir PCR Not detected (NOT DETECT) 09/14/25 00:49 Influenza A (H1) PCR Not detected (NOT DETECT) 09/14/25 00:49 Influ A (H1/09) PCR Not detected (NOT DETECT) 09/14/25 00:49 Influenza A (H3) PCR Not detected (NOT DETECT) 09/14/25 00:49 Influenza Type A (PCR) Not detected (NOT DETECT) 09/14/25 00:49 Influenza Type B (PCR) Not detected (NOT DETECT) 09/14/25 00:49 M. pneumoniae (PCR) Not detected (NOT DETECT) 09/14/25 00:49 Parainfluenza 1 (PCR) Not detected (NOT DETECT) 09/14/25 00:49 Parainfluenza 2 (PCR) Not detected (NOT DETECT) 09/14/25 00:49 Parainfluenza 3 (PCR) Not detected (NOT DETECT) 09/14/25 00:49 Parainfluenza 4 (PCR) Not detected (NOT DETECT) 09/14/25 00:49 RSV Type A (PCR) Not detected (NOT DETECT) 09/14/25 00:49 RSV Type B (PCR) Not detected (NOT DETECT) 09/14/25 00:49 Entero/Rhino (PCR) Detected (NOT DETECT) A 09/14/25 00:49 SARS-CoV-2 (PCR) Not detected (NOT DETECT) 09/14/25 00:49 All radiology interpretation(s) finalized by discharge Discharge Plan Discharge Patient Disposition: Xfer Psychiatric Hosp Clinical Impression: Homicidal ideation, Suicidal ideation Condition: Stable Referrals: Sheldon Banerjee DO [Primary Care Provider, [facility]] Print Language: Malawian Coding Level of Care Code ED Boarding Mother for Hany Gaytan
--- NOTE | 2025-09-14 08:53 | ECG_ITS ---
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 Measurements Intervals [place] Rate: 84 P: 71 [place]: 145 QRS: -18 QRSD: 98 T: 56 QT: 356 QTc: 422 Interpretive Statements SINUS RHYTHM WITH MARKED SINUS ARRHYTHMIA SEPTAL MYOCARDIAL INFARCTION , OF INDETERMINATE AGE [40+ ms Q WAVE IN V1/V2] Compared to ECG 05/19/2025 03:11:46 No significant changes Electronically Signed On 09-14-2025 20:18:38 SOCIAL AND HUMAN SERVICES ASSISTANT by Gi Blancas M.D. [email or web address]
--- NOTE | 2025-09-14 09:01 | PC.NURSE ---
PT ASKED FOR NURSE AND STATED THAT HE HAD SUDDEN ONSET OF CHEST PAIN. NURSE DID EKG AND PT REPORTED RELIEF WITHIN A FEW MOMENTS. EKG GIVEN TO DR DONATO AND NOTIFIED OF CHEST PAIN. PT PLACED ON BEDSIDE CARDIAC MONITORING. NO FURTHER ORDERS AT THIS TIME.
[2025-09-14 12:23] LABS: Alcohol Level < 10 mg/dL (0-10)
--- NOTE | 2025-09-14 16:28 | PC.PHAR ---
Patient states he has not taken his Prescribed medication in 2 to 3 months ., due to losing or getting it stollen ,and moving place to place. I left medications and fill dates on his profile.
== END 2025-09-14 20:30 ==
PROVIDERS: Family Medicine; Emergency Provider Emergency Medicine; PCP Family Medicine
DX: R45.850 Homicidal ideations (principal); R45.851 Suicidal ideations; Z11.52 Encounter for screening for COVID-19; F17.210 Nicotine dependence, cigarettes, uncomplicated; J44.9 Chronic obstructive pulmonary disease, unspecified; I10 Essential (primary) hypertension
CPT/HCPCS: 36415; 71045; 80053; 80307; 85025; 87486; 87581; 87633; 93005; 99285; J9999